=== PATIENT | female | born 1945 | race Caucasian/White ===

== ENCOUNTER 2018-12-05 13:07 | Outpatient (CLI) | payer OTHER ==
[~2018-12-05] VITALS: Ht 170.2 cm; Wt 97.5 kg
[2018-12-05] MEDS ORDERED: OMG1KC PO (13:45)
[2018-12-05] MEDS ORDERED: CALC600T12 PO (13:45)
[2018-12-05] MEDS ORDERED: AMIO200T4 PO (13:45)
[2018-12-05] MEDS ORDERED: NITR100C PO (13:45)
[2018-12-05] MEDS ORDERED: HYDR-3820 PO (13:45)
[2018-12-05] MEDS ORDERED: LISI1TAB8 PO (13:45)
[2018-12-05] MEDS ORDERED: GABA-486 PO (13:45)
[2018-12-05] MEDS ORDERED: DULO60CA58 PO (13:45)
[2018-12-05] MEDS ORDERED: ALPR0.25 PO (13:45)
== END 2018-12-05 13:53 | disposition home or self-care (01) ==
LOC: PREOP 13:07
PROVIDERS: ATTEND Podiatrist Foot & Ankle Surgery
DX: Z01.818 Encounter for other preprocedural examination (principal)

== ENCOUNTER 2018-12-10 08:03 | Day surgery (SDC) | payer MEDICARE, OTHER ==
[~2018-12-10] VITALS: Ht 170.2 cm; Wt 97.5 kg
[~2018-12-10 08:03] MED LIST: ALPR0.25 PO; AMIO200T4 PO; CALC600T12 PO; DULO60CA58 PO; GABA-486 PO; HYDR-3820 PO; LISI1TAB8 PO; NITR100C PO; OMG1KC PO
[2018-12-10] MEDS ORDERED: BUPIVACAINE 0.5% 30 ML (SENSORCAINE) VIAL ONE (08:26)
[2018-12-10 08:30] VITALS: BP 187/71
[2018-12-10] MEDS: LACTATED RINGERS 1,000 ML IV SCH ×2 (08:30→10:30)
[2018-12-10] MEDS ORDERED: CATHETER FLUSH 10 ML SYR IV PRN (08:30)
[2018-12-10] MEDS ORDERED: ceFAZolin INJECTION 1,000 MG in WATER (STERILE) FOR INJECTION 10 ML IV ONE (08:30)
[2018-12-10] MEDS ORDERED: SEVOFLURANE (ULTANE) 15 ML INHAL SOLN ONE ×5 (08:58→11:35)
[2018-12-10] MEDS ORDERED: DEXAMETHASONE 10 MG/ML (DECADRON) 1 ML VIAL ONE (08:58)
[2018-12-10] MEDS ORDERED: ONDANSETRON 4 MG/2 ML (SDV) Z0FRAN ONE (08:58)
[2018-12-10] MEDS ORDERED: proPOfol 200 MG/20 ML (DIPRIVAN) VIAL IV ONE (08:58)
[2018-12-10] MEDS ORDERED: LIDOCAINE PF 2% 5 ML (XYLOCAINE) VIAL ONE (08:58)
[2018-12-10] MEDS ORDERED: fentaNYL INJECTION 100 MCG/2 ML AMP ONE (08:59)
[2018-12-10] MEDS ORDERED: MIDAZOLAM 2 MG/2 ML (VERSED) VIAL ONE (09:00)
--- OUTSIDE RECORDS SUMMARY | 2018-12-10 09:40 | XMS REPORT | Clinical Summary ---
Author Author Admin, KELLIEE Organization [facility] Address Unknown Phone Unavailable Allergies, Adverse Reactions, Alerts Allergy Name Reaction Description Start Date Severity Status Provider No Known Allergies Carolyn Elder Conditions or Problems Problem Name Problem Code Onset Date Status Entry Date Provider Comment Standard Description Annotate U T I-Recurrent Active Manju Quintero MD Urinary tract infection, site not specified BMI 33-33.9 Active Manju Quintero MD Body Mass Index 33.0-33.9, adult Obesity Class I (BMI 30-34.9) Active Manju Quintero MD Obesity, unspecified Medication List Medication Instructions Start Date Stop Date Generic Name NDC Status Provider Patient Instruction DULOXETINE HCL 60 MG ORAL CAPSULE DELAYED RELEASE PARTICLES 1 pill daily, for depression DULOXETINE HCL 02157294536 Active Manju Quintero MD Active ADULT ASPIRIN EC LOW STRENGTH 81 MG ORAL TABLET DELAYED RELEASE ASPIRIN 43842341029 Active Manju Quintero MD Active CYCLOBENZAPRINE HCL 5 MG ORAL TABLET CYCLOBENZAPRINE HCL 49391801089 Active Manju Quintero MD Active CIPRO 250 MG ORAL TABLET 1 tablet by mouth twice daily CIPROFLOXACIN HCL 46956517688 No Longer Active Manju Quintero MD Active ALPRAZOLAM 0.25 MG ORAL TABLET ALPRAZOLAM 16103937195 Active Manju Quintero MD Active HYDROCODONE-ACETAMINOPHEN 10-325 MG ORAL TABLET HYDROCODONE- ACETAMINOPHEN 48000992874 Active Manju Quintero MD Active LISINOPRIL-HYDROCHLOROTHIAZIDE 20-12.5 MG ORAL TABLET LISINOPRIL-HYDROCHLOROTHIAZIDE 04628479084 Active Manju Quintreo MD Active CEFDINIR 300 MG ORAL CAPSULE CEFDINIR 97464076300 Active Manju Quintero MD Active CIPRO 250 MG ORAL TABLET 1 tablet by mouth twice daily CIPRO 250 MG ORAL TABLET 594585 CIPROFLOXACIN HCL Inactive Advance Directives Directive Description Start Date PERMISSION TO SHARE Immunizations Vaccine Administration Date Value Standard Description influenza immunization (Flu Vax) has been administered Done according to patient influenza virus vaccine, unspecified formulation Vital Signs Date Name Value Unit Range Description blood pressure, diastolic, repeated by physician 70 BP ramirez blood pressure, diastolic 70 mm[Hg] BP ramirez blood pressure, systolic, repeated by physician 120 BP sys blood pressure, systolic 120 mm[Hg] BP sys height E&M 67 [in_us] Bdy height pulse rate E&M 69 /min Heart rate temperature E&M 98.0 [degF] Body temperature weight E&M 210 [lb_av] Weight Measured Diagnostic Results Date Name Value Unit Range Description Office Visit: f/u uti - PMH sexually transmitted disease no risk noted Encounters Code Encounter Date Provider Facility CPT-14706 Level 3 Est. 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 Patient 08:12:19 CDT Manju Quintero MD [facility] Procedures Code Procedure Name Date Entry Date Standard Description CPT-35315 Bladder Scan 14:54:14 METAL TRADES INSTRUCTOR
--- OUTSIDE RECORDS SUMMARY | 2018-12-10 09:40 | XMS REPORT | Clinical Summary ---
Author Author Admin, KELLIEE Organization [facility] Address Unknown Phone Unavailable Allergies, Adverse Reactions, [...] 1 pill daily, for depression DULOXETINE HCL 94054026480 Active Manju Quintero MD Active ADULT ASPIRIN EC LOW STRENGTH 81 MG ORAL TABLET DELAYED RELEASE ASPIRIN 17772041233 Active Manju Quintero MD Active CYCLOBENZAPRINE HCL 5 MG ORAL TABLET CYCLOBENZAPRINE HCL 49215896512 Active Manju Quintero MD Active CIPRO 250 MG ORAL TABLET 1 tablet by mouth twice daily CIPROFLOXACIN HCL 89373332195 No Longer Active Manju Quintero MD Active ALPRAZOLAM 0.25 MG ORAL TABLET ALPRAZOLAM 25811234928 Active Manju Quintero MD Active HYDROCODONE-ACETAMINOPHEN 10-325 MG ORAL TABLET HYDROCODONE- ACETAMINOPHEN 15920243002 Active Manju Quintero MD Active LISINOPRIL-HYDROCHLOROTHIAZIDE 20-12.5 MG ORAL TABLET LISINOPRIL-HYDROCHLOROTHIAZIDE 27710833818 Active Manju Quintero MD Active CEFDINIR 300 MG ORAL CAPSULE CEFDINIR 90831005433 Active Manju Quintero MD Active CIPRO 250 MG ORAL TABLET 1 tablet by mouth twice daily CIPRO 250 MG ORAL TABLET 305752 CIPROFLOXACIN HCL Inactive Advance Directives Directive Description [...] noted Encounters Code Encounter Date Provider Facility CPT-03889 Level 3 Est. 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 Patient 08:12:19 CDT Manju Quintero MD [facility] Procedures Code Procedure Name Date Entry Date Standard Description CPT-84919 Bladder Scan 14:54:14 SENIOR QUALITY MANAGER
--- OUTSIDE RECORDS SUMMARY | 2018-12-10 09:40 | XMS REPORT ---
Author Author JANNET MARTINEZ [facility] MAIN Address [address] [place] [address] Care Team Providers Care Public Defender Name Role Phone MARTINEZ, JANNET Unavailable PROBLEMS Type Condition ICD9-CM Code [id number] Code Onset Dates Condition Status SNOMED Code Problem Anxiety 300.00 Nov, 0 25270570 Problem Precordial pain 786.51 Oct, 0 28963638 Problem Mammographic microcalcification 793.81 Sep, 0 85154975347014 Problem Anxiety F41.9 Nov, 0 46781815 Problem HTN (hypertension), benign I10 0 21461688 Problem CKD (chronic kidney disease) stage 3, GFR 30-59 ml/min N18.3 May, 0 448005957 Problem Precordial pain R07.2 Oct, 0 85938790 Problem Infiltrating ductal carcinoma of breast 174.9 Nov, 0 846612875 Problem CKD (chronic kidney disease) stage 3, GFR 30-59 ml/min 585.3 May, 0 254520937 Problem Osteoarthritis of left knee M17.12 Dec, 0 130294965 Problem Osteoarthritis of left knee 715.96 Dec, 0 027439804 Problem Fibromyalgia 729.1 Oct, 0 790507399 Problem HTN (hypertension), benign 401.1 0 13427540 Problem 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 Oct, 0 560780864 Problem Venous ulcer of right lower extremity with varicose veins 454.0 0 899640698 Problem Status post right mastectomy Z90.11 Oct, 0 010557167 Problem Status post right mastectomy V45.71 Oct, 0 623611939 Problem 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 Oct, 0 913465690 Problem Mammographic microcalcification R92.0 Sep, 0 48889501147575 Problem Osteoarthritis of right knee M17.11 Dec, 0 775112815 Problem Osteoarthritis of right knee 715.96 Dec, 0 744800765 Problem 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 08 Oct, 2011 0 770033305 Problem PAF (paroxysmal atrial fibrillation) 427.31 0 47149540 Problem Infiltrating ductal carcinoma of breast C50.919 Nov, 0 167863826 Problem Status post colonoscopy V45.89 08 Mar, 2014 0 510816273787 Problem Status post colonoscopy Z98.890 Mar, 0 111648375714 Problem Fibromyalgia M79.7 Active 387233956 Problem PAF (paroxysmal atrial fibrillation) I48.0 0 70589637 Problem Paroxysmal atrial fibrillation I48.0 Active 852327418 Problem 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 08 Oct, 2011 0 478391051 Problem Greater trochanteric bursitis of left hip 726.5 Apr, 0 77411624 Problem Greater trochanteric bursitis of left hip M70.62 Apr, 0 18607754 Problem Venous ulcer of right lower extremity with varicose veins I83.019 0 239388815 Problem History of breast cancer in female Z85.3 Active 724587582 Problem Osteoarthritis, unspecified osteoarthritis type, unspecified site M19.90 Active 838677439 ALLERGIES Substance Reaction Event Type Date Status Bactrim DS swelling Drug Allergy Nov, Active ENCOUNTERS Encounter Location Date Diagnosis [address] [address] Nov, [address] [address] Nov, Screening mammogram, encounter for Z12.31 and History of breast cancer in female Z85.[address] [address] Nov, [address] [address] Nov, [address] [address] Nov, Osteoarthritis, unspecified osteoarthritis type, unspecified site M19.90 ; Fibromyalgia M79.7 ; Paroxysmal atrial fibrillation I48.0 and History of breast cancer in female Z85.3 [facility] [address] [place] [address] [id number] [address] Oct, [facility] [id number] [address] Oct, [facility] [place] [address] [place] [address] Oct, [facility] [address] [facility] [id number] [address] Sep, [facility] [address] [address] Aug, [facility] [address] [address] Aug, [facility] [address] [address] Jul, [facility] [id number] [address] Jul, [facility] [address] [facility] [id number] [place] [address] Dec, [facility] [id number] [address] May, IMMUNIZATIONS No Known Immunizations SOCIAL HISTORY Never Assessed REASON FOR VISIT Med refills, est care[facility] Activity Details Follow Up prn Reason: VITAL SIGNS Height 64 in 2018-11-06 Weight 213 lbs 2018-11-06 Temperature 98.7 degrees Fahrenheit 2018-11-06 BMI 36.56 kg/m2 2018-11-06 Blood pressure systolic 154 mmHg 2018-11-06 Blood pressure diastolic 82 mmHg 2018-11-06 MEDICATIONS Medication Instructions Dosage Frequency Start Date End Date Duration Status Calcium Active Multivitamin Adult - Orally daily 1 tab 24h Active Alprazolam 0.25 MG Orally three times a daily as needed for anxiety 1 tablet Active Amiodarone HCl 200 MG Orally Once a day 2 tablet 24h 30 day(s) Active Hydrocodone-Acetaminophen 10-325 MG Orally every 12 hrs as needed for pain 1 tablet as needed Nov, 28 days Active Lisinopril-Hydrochlorothiazide 20-12.5 MG Orally Once a day 1 tablet 24h Oct, 90 days Active Fish Oil Active Aspirin 325 MG Orally Once a day 1 tablet 24h 30 day(s) Active Gabapentin 100 MG Orally Three times a day 1 capsule 8h 30 days Active Cranberry Active RESULTS No Results PROCEDURES Procedure Date Ordered Result Body Site [facility] VISIT NEW PATIENT November 06, 2018 INSTRUCTIONS MEDICATIONS ADMINISTERED No Known Medications MEDICAL (GENERAL) HISTORY Type Description Date Medical History HTN Medical History PAF (paroxysmal artrial fibrillation) Medical History fibromyalgia Medical History DCIS (ductal carcinoma in situ) Medical History atypical ductal hyperplasia of breast Medical History right mastectomy Medical History infiltrating ductal carcinoma of breast Medical History osteoarthritis of right & left knee Medical History anxiety Medical History venous ulcer of right lower extremity with varicose veins Medical History CKD (chronic kidney disease)stage 3, GFR ml/min Medical History precordial pain Medical History greater trochanteric bursiitis of left hip Surgical History breast removal right Surgical History hysterectomy Surgical History knee replacement, bilat Surgical History hip replacement, right Hospitalization History surgeries
--- OUTSIDE RECORDS SUMMARY | 2018-12-10 09:40 | XMS REPORT ---
Author Author JANNET MARTINEZ [facility] MAIN Address [address] [place] [address] Care Team Providers Care Retail Sales Manager Name Role Phone MARTINEZ, JANNET Unavailable PROBLEMS Type Condition ICD9-CM Code MDW28-ID Code Onset Dates Condition Status SNOMED Code Problem Anxiety 300.00 Nov, 0 02110701 Problem Precordial pain 786.51 Oct, 0 07361937 Problem Mammographic microcalcification 793.81 Sep, 0 75855601714225 Problem Anxiety F41.9 Nov, 0 35011295 Problem HTN (hypertension), benign I10 0 29397627 Problem CKD (chronic kidney disease) stage 3, GFR 30-59 ml/min N18.3 May, 0 087821561 Problem Precordial pain R07.2 Oct, 0 50285858 Problem Infiltrating ductal carcinoma of breast 174.9 Nov, 0 738898684 Problem CKD (chronic kidney disease) stage 3, GFR 30-59 ml/min 585.3 May, 0 056721824 Problem Osteoarthritis of left knee M17.12 Dec, 0 953776138 Problem Osteoarthritis of left knee 715.96 Dec, 0 351002808 Problem Fibromyalgia 729.1 Oct, 0 968361383 Problem HTN (hypertension), benign 401.1 0 62603174 Problem 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 Oct, 0 825668240 Problem Venous ulcer of right lower extremity with varicose veins 454.0 0 851751284 Problem Status post right mastectomy Z90.11 Oct, 0 751980371 Problem Status post right mastectomy V45.71 Oct, 0 866470390 Problem 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 Oct, 0 613153101 Problem Mammographic microcalcification R92.0 Sep, 0 56869899883173 Problem Osteoarthritis of right knee M17.11 Dec, 0 988888059 Problem Osteoarthritis of right knee 715.96 Dec, 0 140944118 Problem 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 08 Oct, 2011 0 257745195 Problem PAF (paroxysmal atrial fibrillation) 427.31 0 03089210 Problem Infiltrating ductal carcinoma of breast C50.919 Nov, 0 235353918 Problem Status post colonoscopy V45.89 08 Mar, 2014 0 932678375532 Problem Status post colonoscopy Z98.890 Mar, 0 199774898009 Problem Fibromyalgia M79.7 Active 437631718 Problem PAF (paroxysmal atrial fibrillation) I48.0 0 52952379 Problem Paroxysmal atrial fibrillation I48.0 Active 754099996 Problem 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 08 Oct, 2011 0 258524152 Problem Greater trochanteric bursitis of left hip 726.5 Apr, 0 55688166 Problem Greater trochanteric bursitis of left hip M70.62 Apr, 0 79269226 Problem Venous ulcer of right lower extremity with varicose veins I83.019 0 247264517 Problem History of breast cancer in female Z85.3 Active 049041024 Problem Osteoarthritis, unspecified osteoarthritis type, unspecified site M19.90 Active 678977938 ALLERGIES Substance Reaction Event Type Date Status Bactrim DS swelling Drug Allergy Nov, Active ENCOUNTERS Encounter Location Date Diagnosis [address] [address] Nov, [address] [address] Nov, Screening mammogram, encounter for Z12.31 and History of breast cancer in female Z85.[address] [address] Nov, [address] [address] Nov, [address] [address] Nov, Osteoarthritis, unspecified osteoarthritis type, unspecified site M19.90 ; Fibromyalgia M79.7 ; Paroxysmal atrial fibrillation I48.0 and History of breast cancer in female Z85.3 [facility] [address] [place] [address] [id number] [address] Oct, [facility] [address] [id number] [address] Oct, [facility] [address] [address] Oct, [facility] [address] [id number] [address] Sep, [facility] [address], [place] [address] Aug, [facility] [address], [place] [address] Aug, [facility] [address], [place] [address] Jul, [facility] [address], [place] [address] Jul, [facility] [address] [facility] [id number] [address] Dec, [facility] [id number], [place] [address] May, IMMUNIZATIONS No Known Immunizations SOCIAL HISTORY Never Assessed REASON FOR VISIT medical history update PLAN OF CARE VITAL SIGNS MEDICATIONS Medication Instructions Dosage Frequency Start Date End Date Duration Status Gabapentin 100 MG Orally Three times a day 1 capsule 8h 30 days Unknown Multivitamin Adult - Orally daily 1 tab 24h Unknown Aspirin 325 MG Orally Once a day 1 tablet 24h 30 day(s) Unknown Alprazolam 0.25 MG Orally three times a daily as needed for anxiety 1 tablet Unknown Fish Oil Unknown Amiodarone HCl 200 MG Orally Once a day 2 tablet 24h 30 day(s) Unknown Lisinopril-Hydrochlorothiazide 20-12.5 MG Orally Once a day 1 tablet 24h 07 Oct, 2018 90 days Unknown Hydrocodone-Acetaminophen 10-325 MG Orally every 12 hrs as needed for pain 1 tablet as needed Nov, 28 days Unknown Cranberry Unknown Calcium Unknown RESULTS No Results PROCEDURES No Known procedures INSTRUCTIONS MEDICATIONS ADMINISTERED No Known Medications MEDICAL [...]
--- OUTSIDE RECORDS SUMMARY | 2018-12-10 09:41 | XMS REPORT | Clinical Summary ---
Author Author Admin, QIE Organization [facility] Address Unknown Phone Unavailable Allergies, Adverse Reactions, Alerts Allergy Name Reaction Description Start Date Severity Status Provider Allergies Unknown Conditions or Problems Problem Name Problem Code Onset Date Status Entry Date Provider Comment Standard Description Annotate U T I-Recurrent Active Manju Quintero MD Urinary tract infection, site not specified Medication List Medication Instructions Start Date Stop Date Generic Name NDC Status Provider Patient Instruction ADULT ASPIRIN EC LOW STRENGTH 81 MG ORAL TABLET DELAYED RELEASE ASPIRIN 06783784660 Active Manju Quintero MD Active CYCLOBENZAPRINE HCL 5 MG ORAL TABLET CYCLOBENZAPRINE HCL 76422552087 Active Manju Quintero MD Active CIPRO 250 MG TAB 1 tablet by mouth twice daily CIPROFLOXACIN HCL 26604049134 No Longer Active Manju Quintero MD Active ALPRAZOLAM 0.25 MG ORAL TABLET ALPRAZOLAM 73880646052 Active Manju Quintero MD Active HYDROCODONE-ACETAMINOPHEN 10-325 MG ORAL TABLET HYDROCODONE- ACETAMINOPHEN 06533956833 Active Manju Quintero MD Active LISINOPRIL-HYDROCHLOROTHIAZIDE 20-12.5 MG ORAL TABLET LISINOPRIL-HYDROCHLOROTHIAZIDE 81010702533 Active Manju Quintero MD Active CEFDINIR 300 MG ORAL CAPSULE CEFDINIR 66798666055 Active Manju Quintero MD Active CIPRO 250 MG TAB 1 tablet by mouth twice daily CIPRO 250 MG TAB 606165 CIPROFLOXACIN HCL Inactive Advance Directives Directive Description Start Date PERMISSION TO SHARE Vital Signs Date Name Value Unit Range Description blood pressure, diastolic 76 mm[Hg] BP ramirez blood pressure, systolic 124 mm[Hg] BP sys height E&M 67 [in_us] Bdy height pulse rate E&M 68 /min Heart rate temperature E&M 98.3 [degF] Body temperature weight E&M 210 [lb_av] Weight Measured Diagnostic Results Date Name Value Unit Range Description Office Visit: Chronic kidney disease, recurrent UTI's - Chemistry RBC, urine, dipstick negative protein, total urine random negative mg/dL Office Visit: Chronic kidney disease, recurrent UTI's - Urinalysis pH, urine, semiquantitative 6 specific gravity, urine 1.010 ketones, urine, by test strip negative bilirubin, urine negative glucose, urine, semiquantitative negative urine color yellow appearance, urine clear leukocyte esterase, urine, by dipstick 2+ nitrite, urine, semiquantitative negative urobilinogen, urine, semiquantitative (dipstick) negative protein, urine, semiquantitative (dipstick) negative Encounters Code Encounter Date Provider Facility CPT-32768 Level 3 Est. Patient 08:12:19 CRISTÓBAL Quintero MD [facility]
--- OUTSIDE RECORDS SUMMARY | 2018-12-10 09:41 | XMS REPORT | Clinical Summary ---
Author Author Admin, QIE Organization [facility] Address Unknown Phone Unavailable Allergies, [...] 81 MG ORAL TABLET DELAYED RELEASE ASPIRIN 78427117246 Active Manju Quintero MD Active CYCLOBENZAPRINE HCL 5 MG ORAL TABLET CYCLOBENZAPRINE HCL 25559088223 Active Majnu Quintero MD Active CIPRO 250 MG TAB 1 tablet by mouth twice daily CIPROFLOXACIN HCL 53794606941 No Longer Active Manju Quintero MD Active ALPRAZOLAM 0.25 MG ORAL TABLET ALPRAZOLAM 04092797391 Active Manju Quintero MD Active HYDROCODONE-ACETAMINOPHEN 10-325 MG ORAL TABLET HYDROCODONE- ACETAMINOPHEN 95157331025 Active Manju Quintero MD Active LISINOPRIL-HYDROCHLOROTHIAZIDE 20-12.5 MG ORAL TABLET LISINOPRIL-HYDROCHLOROTHIAZIDE 83492416697 Active Manju Quintero MD Active CEFDINIR 300 MG ORAL CAPSULE CEFDINIR 64513271521 Active Manju Quintero MD Active CIPRO 250 MG TAB 1 tablet by mouth twice daily CIPRO 250 MG TAB 222379 CIPROFLOXACIN HCL Inactive Advance Directives Directive Description [...] negative Encounters Code Encounter Date Provider Facility CPT-02258 Level 3 Est. Patient 08:12:19 CRISTÓBAL Quintero MD [facility]
--- OUTSIDE RECORDS SUMMARY | 2018-12-10 09:41 | XMS REPORT | Clinical Summary ---
Author Author Admin, KELLIEE Organization [facility] Address Unknown Phone Unavailable Allergies, Adverse Reactions, [...] 1 pill daily, for depression DULOXETINE HCL 93774147505 Active Manju Quintero MD Active ADULT ASPIRIN EC LOW STRENGTH 81 MG ORAL TABLET DELAYED RELEASE ASPIRIN 94032457144 Active Manju Quintero MD Active CYCLOBENZAPRINE HCL 5 MG ORAL TABLET CYCLOBENZAPRINE HCL 96639359279 Active Manju Quintero MD Active CIPRO 250 MG ORAL TABLET 1 tablet by mouth twice daily CIPROFLOXACIN HCL 36713158496 No Longer Active Manju Quintero MD Active ALPRAZOLAM 0.25 MG ORAL TABLET ALPRAZOLAM 06711463495 Active Manju Quintero MD Active HYDROCODONE-ACETAMINOPHEN 10-325 MG ORAL TABLET HYDROCODONE- ACETAMINOPHEN 57722843589 Active Manju Quintero MD Active LISINOPRIL-HYDROCHLOROTHIAZIDE 20-12.5 MG ORAL TABLET LISINOPRIL-HYDROCHLOROTHIAZIDE 42708488141 Active Manju Quintero MD Active CEFDINIR 300 MG ORAL CAPSULE CEFDINIR 52223298899 Active Manju Quintero MD Active CIPRO 250 MG ORAL TABLET 1 tablet by mouth twice daily CIPRO 250 MG ORAL TABLET 417954 CIPROFLOXACIN HCL Inactive Advance Directives Directive Description [...] noted Encounters Code Encounter Date Provider Facility CPT-91839 Level 3 Est. 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 Patient 08:12:19 CDT Manju Quintero MD [facility] Procedures Code Procedure Name Date Entry Date Standard Description CPT-35131 Bladder Scan 14:54:14 PHOTO CARTOGRAPHER
--- OUTSIDE RECORDS SUMMARY | 2018-12-10 09:41 | XMS REPORT | Clinical Summary ---
[...] 81 MG ORAL TABLET DELAYED RELEASE ASPIRIN 32483086954 Active Manju Quintero MD Active CYCLOBENZAPRINE HCL 5 MG ORAL TABLET CYCLOBENZAPRINE HCL 61867266421 Active Manju Quintero MD Active CIPRO 250 MG TAB 1 tablet by mouth twice daily CIPROFLOXACIN HCL 35908092145 No Longer Active Manju Quintero MD Active ALPRAZOLAM 0.25 MG ORAL TABLET ALPRAZOLAM 71203000379 Active Manju Quintero MD Active HYDROCODONE-ACETAMINOPHEN 10-325 MG ORAL TABLET HYDROCODONE- ACETAMINOPHEN 90679180204 Active Manju Quintero MD Active LISINOPRIL-HYDROCHLOROTHIAZIDE 20-12.5 MG ORAL TABLET LISINOPRIL-HYDROCHLOROTHIAZIDE 38113110644 Active Manju Quintero MD Active CEFDINIR 300 MG ORAL CAPSULE CEFDINIR 85477856028 Active Manju Quintero MD Active CIPRO 250 MG TAB 1 tablet by mouth twice daily CIPRO 250 MG TAB 093150 CIPROFLOXACIN HCL Inactive Advance Directives Directive Description [...] negative Encounters Code Encounter Date Provider Facility CPT-54430 Level 3 Est. Patient 08:12:19 CRISTÓBAL Quintero MD [facility]
--- OUTSIDE RECORDS SUMMARY | 2018-12-10 09:41 | XMS REPORT | Clinical Summary ---
Author Author Admin, KELLIEE Organization [facility] Address Unknown Phone Unavailable Allergies, Adverse [...] 1 pill daily, for depression DULOXETINE HCL 29787133396 Active Manju Quintero MD Active ADULT ASPIRIN EC LOW STRENGTH 81 MG ORAL TABLET DELAYED RELEASE ASPIRIN 72700822142 Active Manju Quintero MD Active CYCLOBENZAPRINE HCL 5 MG ORAL TABLET CYCLOBENZAPRINE HCL 24254589891 Active Manju Quintero MD Active CIPRO 250 MG ORAL TABLET 1 tablet by mouth twice daily CIPROFLOXACIN HCL 24528320491 No Longer Active Manju Quintero MD Active ALPRAZOLAM 0.25 MG ORAL TABLET ALPRAZOLAM 94445085837 Active Manju Quintero MD Active HYDROCODONE-ACETAMINOPHEN 10-325 MG ORAL TABLET HYDROCODONE- ACETAMINOPHEN 12184569010 Active Manju Quintero MD Active LISINOPRIL-HYDROCHLOROTHIAZIDE 20-12.5 MG ORAL TABLET LISINOPRIL-HYDROCHLOROTHIAZIDE 58646831099 Active Manju Quintero MD Active CEFDINIR 300 MG ORAL CAPSULE CEFDINIR 75261618478 Active Manju Quintero MD Active CIPRO 250 MG ORAL TABLET 1 tablet by mouth twice daily CIPRO 250 MG ORAL TABLET 312973 CIPROFLOXACIN HCL Inactive Advance Directives Directive Description [...] noted Encounters Code Encounter Date Provider Facility CPT-78362 Level 3 Est. Patient 14:54:14 CHIPS SCREEN TENDER Manju Quintero MD [facility] CPT-29955 Level 3 Est. Patient 08:12:19 CDT Manju Quintero MD [facility] Procedures Code Procedure Name Date Entry Date Standard Description [id number] Bladder Scan 14:54:14 CHIPS SCREEN TENDER
--- OUTSIDE RECORDS SUMMARY | 2018-12-10 09:41 | XMS REPORT | Continuity of Care Document ---
Author Organization Unknown Address Unknown Allergies There is no data. Medications There is no data. Problems Date Dx Coded Attending Type Code Diagnosis Diagnosed By 06/21/2017 Manju Quintero MD N39.0 U T I-Recurrent 08/17/2018 Manju Quintero MD E66.9 Obesity Class I (BMI 30-34.9) 08/17/2018 Manju Quintero MD Z68.33 BMI 33-33.9 Procedures There is no data. Results There is no data. Encounters ACCT No. Visit Date/Time Discharge Status Pt. Type Provider Facility Loc./Unit Complaint [id number] 12/05/2018 10:00:00 12/05/2018 23:59:59 [facility] SHANNON [facility] [id number] 11/05/2018 13:34:03 [facility] Unknown Manju Quintero MD
--- OUTSIDE RECORDS SUMMARY | 2018-12-10 09:41 | XMS REPORT | Clinical Summary ---
Author Author Admin, QIE Organization [facility] Address Unknown Phone Unavailable Allergies, Adverse Reactions, [...] 81 MG ORAL TABLET DELAYED RELEASE ASPIRIN 12889267082 Active Manju Quintero MD Active CYCLOBENZAPRINE HCL 5 MG ORAL TABLET CYCLOBENZAPRINE HCL 34916184302 Active Manju Quintero MD Active CIPRO 250 MG TAB 1 tablet by mouth twice daily CIPROFLOXACIN HCL 54368612139 No Longer Active Manju Quintero MD Active ALPRAZOLAM 0.25 MG ORAL TABLET ALPRAZOLAM 47736816772 Active Manju Quintero MD Active HYDROCODONE-ACETAMINOPHEN 10-325 MG ORAL TABLET HYDROCODONE- ACETAMINOPHEN 71722295505 Active Manju Quintero MD Active LISINOPRIL-HYDROCHLOROTHIAZIDE 20-12.5 MG ORAL TABLET LISINOPRIL-HYDROCHLOROTHIAZIDE 24739361968 Active Manju Quintero MD Active CEFDINIR 300 MG ORAL CAPSULE CEFDINIR 10624961939 Active Manju Quintero MD Active CIPRO 250 MG TAB 1 tablet by mouth twice daily CIPRO 250 MG TAB 610147 CIPROFLOXACIN HCL Inactive Vital Signs Date Name Value Unit Range [...] negative Encounters Code Encounter Date Provider Facility CPT-77936 Level 3 Est. Patient 08:12:19 CDT Manju Quintero MD [facility]
--- NOTE | 2018-12-10 12:00 | Progress Note-Pre Operative ---
Pre-Operative Progress Note H&P Reviewed The H&P was reviewed, patient examined and no changes noted. Date Seen by Provider: Dec 10, 2018 Time Seen by Provider: 10:00 Date H&P Reviewed: Dec 10, 2018 Time H&P Reviewed: 10:01 Pre-Operative Diagnosis: contracted toes 1, 2, 3, 4, 5 right JOAN CANALES DPM Dec 10, 2018 12:00
[2018-12-10] MEDS ORDERED: LACTATED RINGERS 1,000 ML IV SCH (12:02)
--- NOTE | 2018-12-10 12:02 | Progress Note-Post Operative ---
Post-Operative Progess Note Surgeon (s)/Celebrity Manager (s) Surgeon JOAN CANALES DPM Celebrity Manager: none Pre-Operative Diagnosis contracted toes 1, 2, 3, 4, 5 right Post-Operative Diagnosis Same Procedure & Operative Findings Date of Procedure 12/10/18 Procedure Performed/Findings Reduction of Hammertoes 1, 2, 3, 4, 5, right foot Anesthesia Type General Estimated Blood Loss Estimated blood loss (mL): Minimal Specimens/Packing Specimens Removed none JOAN CANALES DPM Dec 10, 2018 12:02
[2018-12-10] MEDS ORDERED: HYDROcodone/APAP 5 MG/325 MG (LORTAB) TAB PO PRN (12:15)
--- NOTE | 2018-12-10 12:21 | Anesthesia-General Post-Op ---
General Patient Condition Mental Status/LOC: Same as Preop Cardiovascular: Satisfactory Nausea/Vomiting: Absent Respiratory: Satisfactory Pain: Controlled Complications: Absent Post Op Complications Complications None Follow Up Care/Instructions Patient Instructions None needed. Anesthesia/Patient Condition Patient Condition Patient is doing well, no complaints, stable vital signs, no apparent adverse anesthesia problems. No complications reported per nursing. [place] [facility] [place]: Yes MARCOS MOSLEY CRNA Dec 10, 2018 12:21
--- NOTE | 2018-12-10 12:53 | Diagnostic Imaging Report ---
Indication: Postop. No priors. Osteotomies and percutaneous pins placed along the interphalangeal joints of the first through fourth toes. Osteotomy and resection of the distal aspect of the proximal phalanx of the fifth toe is present without underlying metallic hardware. The alignment appeared good. Plantar calcaneal spurring chronic. Impression: Postsurgical changes to the phalanges, percutaneous pins placed first through fourth rays. Alignment appeared good. Dictated by: Dictated on workstation # [id number]
[2018-12-10 13:00] VITALS: BP 160/87
[2018-12-10 13:30] VITALS: BP 157/75
[2018-12-10] MEDS ORDERED: CEPH-507 PO (13:56)
[2018-12-10] MEDS ORDERED: OXYC-199 PO (13:56)
[2018-12-10 14:00] VITALS: BP 154/72
--- NOTE | 2018-12-10 15:00 | Physical Therapy Ortho Eval ---
PT Orthopedic Evaluation Type of Surgery right contracted toes 1-5 Prior Level of Function Current Living Status: Spouse Locomotion (Upon Admit): Independent, Front Wheeled Walker Subjective Subjective Patient agrees to PT. Entry Into Home: Stairs With Railing Steps Into Home: 3 Steps Accessories: Railing Present Motor Control Motor Control: Motor Control WNL ROM ROM: WFL, except focal deficit Strength Strength: WFL Transfer Transfers (B, C, W/C) (FIM): 7 Gait Gait Assistive Device: FWW Right Lower Extremity: Right Weight Bearing Status RLE: Partial Weight Bearing Left Lower Extremity: Left Weight Bearing Status LLE: Full Weight Bearing Gait (FIM): 2 Distance (FIM): 5=212-81 ft Distance: 100' x 2 Gait Level of Assist: 5 Summary/Comments Patient had difficulty complying with PWB right foot with verbal, tactile and demonstration. Spouse present and comprehends and reports he will continue to work with patient at home. Treatment Rendered Treatment: Gait Train, Step Train (declined actual training/accepted verbal demonstration/instruction with good understanding) Assessment/Goals Goal Time Frame: 1 Visit Safe Ambulation: Yes Plan Treatment Plan: Discharge Treatment Duration: eval PT/Family Agrees to Plan: Yes Time Time In: 1410 Time Out: 1433 Total Billed Treatment Time: 23 Billed Treatment Time 1 visit EVJelani 8 min GT 15 min SUSY CROCKER PT Dec 10, 2018 15:00
--- NOTE | 2018-12-10 21:39 | OPERATIVE REPORT ---
DATE OF SERVICE: 12/10/2018 SURGEON: Carleen Francois DPM PREOPERATIVE DIAGNOSIS: 1. Hammer digit syndrome, second, third, fourth and fifth digits, right foot. 2. Hallux malleus, right hallux. POSTOPERATIVE DIAGNOSES: 1. Hammer digit syndrome, second, third, fourth and fifth digits, right foot. 2. Hallux malleus, right hallux. PROCEDURE: Reduction of hammertoe 1, 2, 3, 4 and 5, all right foot with arthrodesis to the first, second, third and fourth digits, arthroplasty to the fifth. WOUND CLASS: Clean. ANESTHESIA: General. HEMOSTASIS: Pneumatic thigh tourniquet at 300 mmHg. INDICATIONS: This 73-year-old female presents complaining of painful hammertoes, right foot. Conservative therapy has met with unsatisfactory results and the patient is agreeable to surgical intervention after risks and complications were discussed at length. No guarantees were extended to the patient and she is willing to proceed. DESCRIPTION OF PROCEDURE: The patient was brought back to the operative table, placed in secure supine position. General anesthetic was then induced. Appropriate timeout was performed. A thigh tourniquet was placed on the right lower extremity over several layers of padding. The right foot was anesthetized utilizing aseptic technique with 10 mL of 0.5% Marcaine plain. The right foot was then prepped and draped in normal sterile manner. The right foot was then elevated and allowed to exsanguinate, after which the tourniquet was inflated to 300 mmHg. Attention was then directed to the dorsal aspect of the right hallux where a 2 cm medial to lateral incision was created overlying the interphalangeal joint of the hallux. The incision was deepened in the same plane with great care to identify and retract all vital neurovascular structures. A transverse tenotomy was performed. This exposed the base of the distal phalanx and the head of the proximal phalanx, which were reduced with a power sagittal saw. Next, a 0.062 smooth K-wire was utilized to fenestrate the base of the distal phalanx and head of the proximal phalanx. Excellent bony apposition was appreciated at this time and good reduction of the contracture at the interphalangeal joint was noted. Smooth 0.062 K wire was driven from distal medial to proximal lateral and a second K-wire from distal lateral to proximal medial. The K wires were bent as the exited out the end of the toe and were protected utilizing a Coban as they were bent and angled towards each other. The wound was flushed with copious amounts of normal saline and the extensor tendon repaired with 3-0 Vicryl, superficial closure with 4-0 Vicryl and skin closed with 4-0 Prolene in an alternating simple interrupted and horizontal mattress type stitch. There remained some dorsal extension with a tight extensor hallucis longus. Utilizing an 11 blade, a stab incision was created just proximal to the metatarsophalangeal joint and the medial aspect of the extensor hallucis longus was severed. Next, approximately a centimeter distal to that, another stab incision was created and the lateral portion of the extensor hallucis longus tendon was severed. The digit was then forcibly plantarflexed extending the digit down in a more plantarflexed position. Good reduction of the extensor hallucis longus elevating the hallux was noted at this time. Attention was then directed to the second, third and fourth digits of the right foot where the same procedure was performed, noting a rigid contracture at the proximal interphalangeal joint. An incision was created at the metatarsophalangeal joint down to the distal interphalangeal joint of each of the digits. The incisions were deepened in the same plane with great care to identify and retract all vital neurovascular structures. The incision was deepened down to the extensor tendon where a Z slide lengthening was performed to the second, third and fourth rays. The extensor tendon was then reflected proximally and the extensor max released overlying the metatarsophalangeal joints. The medial and lateral collateral ligaments at the metatarsophalangeal joint was released. This allowed the proximal phalanx to come down to more rectus alignment. Next, the head of the proximal phalanx was fashioned into a peg utilizing a power sagittal saw and power suzette. A hole was created at the base of the middle phalanx with the power suzette to the second, third and fourth rays. Next, utilizing a 0.062 smooth K wire, the digits were then held in rectus alignment with the excess K wire being cut and protective ball plane being placed over the end of the wires of the second, third and fourth digits. The wounds were flushed with copious amounts of normal saline. Closure was then performed in layers. Deep closure was performed with 3-0 Vicryl, superficial with 4-0 Vicryl, skin closed with 4-0 Prolene in a horizontal mattress type stitch. Attention was then directed to the right fifth digit where the digit was extended dorsally as well as adductovarus contracture. A 2 cm longitudinal linear incision was created from the metatarsophalangeal joint to the distal interphalangeal joint area. The extensor tendon was lengthened with the Z slide procedure. The hypertrophic head of the proximal phalanx was then resected utilizing power sagittal saw. The wound was flushed with copious amounts of normal saline. Closure was then performed in layers. Deep closure was performed with 4-0 Vicryl. Superficial closure with 4-0 Vicryl and the skin was closed with horizontal mattress type suture with 4-0 Prolene. The tourniquet was released noting appropriate capillary refill time to all digits of the right foot. Postoperative injection consisted of 10 mL of 0.5% Marcaine injected in a local effusion to the surgical sites. A postoperative dressing consisted of Betadine soaked Adaptic, sterile 4 x 4, sterile Kerlix all secured with a Coban wrap. The patient tolerated the anesthesia and procedure well, was transported from the operating room to the recovery area with vital signs stable and vascular status intact to all digits of the right foot. She is to follow up in my office in 10 days' period of time or sooner if necessary. Job ID: [id number] DocumentID: [id number] Dictated Date: 12/10/2018 12:15:05 Rescue Boat Operator Date: 12/10/2018 21:38:40 Dictated By: TIMOTHY CERDA
== END 2018-12-10 14:30 | disposition home or self-care (01) ==
LOC: SDC 08:03
PROVIDERS: ATTEND Podiatrist Foot & Ankle Surgery
DX: M20.41 Other hammer toe(s) (acquired), right foot (principal); M20.31 Hallux varus (acquired), right foot; Z11.2 Encounter for screening for other bacterial diseases; I48.0 Paroxysmal atrial fibrillation; I12.9 Hypertensive chronic kidney disease with stage 1 through stage 4 chronic kidney disease, or unspecified chronic kidney disease; M79.7 Fibromyalgia; M17.0 Bilateral primary osteoarthritis of knee; F41.9 Anxiety disorder, unspecified; N18.3 Chronic kidney disease, stage 3 (moderate); M70.62 Trochanteric bursitis, left hip; I27.20 Pulmonary hypertension, unspecified; G25.81 Restless legs syndrome; E66.9 Obesity, unspecified; F32.9 Major depressive disorder, single episode, unspecified; Z85.3 Personal history of malignant neoplasm of breast; Z96.653 Presence of artificial knee joint, bilateral; Z96.641 Presence of right artificial hip joint; Z90.11 Acquired absence of right breast and nipple; Z86.718 Personal history of other venous thrombosis and embolism; Z79.899 Other long term (current) drug therapy; Z88.2 Allergy status to sulfonamides; Z68.33 Body mass index [BMI] 33.0-33.9, adult
CPT/HCPCS: 73620; 87081

== ENCOUNTER 2019-09-09 13:34 | Outpatient (CLI) | payer MEDICARE, OTHER ==
[~2019-09-09] VITALS: Ht 170.2 cm; Wt 99.2 kg
[~2019-09-09 13:34] MED LIST changes: +CEPH-507 PO; -DULO60CA58 PO; +DULO60CA59 PO; +OXYC-199 PO
[2019-09-09 13:49] VITALS: BP 161/78
== END 2019-09-09 14:00 | disposition home or self-care (01) ==
LOC: PREOP 13:34
PROVIDERS: ATTEND Podiatrist Foot & Ankle Surgery
DX: Z01.818 Encounter for other preprocedural examination (principal)
CPT/HCPCS: 87081

== ENCOUNTER 2019-09-16 06:05 | Day surgery (SDC) | payer MEDICARE, OTHER ==
[2019-09-16] VITALS (9 sets, daily range): BP systolic 138–190; BP diastolic 59–99
[~2019-09-16] VITALS: Ht 170.2 cm; Wt 99.2 kg
[~2019-09-16 06:05] MED LIST changes: +LISI1TAB25 PO; -LISI1TAB8 PO
[2019-09-16] MEDS ORDERED: LIDOCAINE PF 2% 5 ML (XYLOCAINE) VIAL ONE (06:52)
[2019-09-16] MEDS ORDERED: proPOfol 200 MG/20 ML (DIPRIVAN) VIAL IV ONE ×2 (06:52→08:26)
[2019-09-16] MEDS ORDERED: fentaNYL INJECTION 100 MCG/2 ML AMP ONE (06:52)
[2019-09-16] MEDS ORDERED: MIDAZOLAM 2 MG/2 ML (VERSED) VIAL ONE (06:53)
[2019-09-16] MEDS ORDERED: ceFAZolin INJECTION 1,000 MG ONE (06:58)
[2019-09-16] MEDS ORDERED: WATER (STERILE) FOR INJECTION 10 ML ONE (06:59)
[2019-09-16] MEDS ORDERED: ceFAZolin INJECTION 1,000 MG in WATER (STERILE) FOR INJECTION 10 ML IV ONE (07:00)
[2019-09-16] MEDS ORDERED: LIDOCAINE 1% INJ 20 ML 20 ML VIAL ONE (07:09)
[2019-09-16] MEDS ORDERED: DEXAMETHASONE 10 MG/ML (DECADRON) 1 ML VIAL ONE ×2 (07:09→08:03)
[2019-09-16] MEDS ORDERED: BUPIVACAINE 0.5% 30 ML (SENSORCAINE) VIAL ONE (07:09)
[2019-09-16] MEDS: LACTATED RINGERS 1,000 ML IV PRN ×2 (07:20→09:15)
[2019-09-16] MEDS ORDERED: CATHETER FLUSH 10 ML SYR IV PRN (07:30)
--- NOTE | 2019-09-16 07:31 | Progress Note-Pre Operative ---
Pre-Operative Progress Note H&P Reviewed The H&P was reviewed, patient examined and no changes noted. Date Seen by Provider: Sep 16, 2019 Time Seen by Provider: 07:30 Date H&P Reviewed: Sep 16, 2019 Time H&P Reviewed: 07:30 Pre-Operative Diagnosis: Hammertoes 2, 3, 4, 5, left foot JOAN CANALES DPM Sep 16, 2019 07:31
[2019-09-16] MEDS ORDERED: ONDANSETRON 4 MG/2 ML (SDV) Z0FRAN ONE (08:03)
[2019-09-16] MEDS ORDERED: SEVOFLURANE (ULTANE) 15 ML INHAL SOLN ONE ×3 (08:03→09:17)
--- NOTE | 2019-09-16 09:33 | Progress Note-Post Operative ---
Post-Operative Progess Note Surgeon (s)/Residential Lawn Specialist (s) Surgeon JOAN CANALES DPM Residential Lawn Specialist: none Pre-Operative Diagnosis Hammertoes 2, 3, 4, 5, left foot Post-Operative Diagnosis Same plus exostosis left hallux Procedure & Operative Findings Date of Procedure 09/16/19 Procedure Performed/Findings Reduction of hammertoes 2, 3, 4, 5, left Exostectomy left hallux Anesthesia Type General Estimated Blood Loss Estimated blood loss (mL): minimal Specimens/Packing Specimens Removed none JOAN CANALES DPM Sep 16, 2019 09:33
[2019-09-16] MEDS ORDERED: CEPH500C PO (09:36)
[2019-09-16] MEDS ORDERED: ACHD5005 PO (09:36)
[2019-09-16] MEDS ORDERED: ONDANSETRON 4 MG/2 ML (SDV) Z0FRAN IVP PRN (09:45)
[2019-09-16] MEDS ORDERED: HYDROmorphone 2 MG/ML VIAL (DILAUDID) IV ONE (09:45)
[2019-09-16] MEDS ORDERED: HYDROcodone/APAP 5 MG/325 MG (LORTAB) TAB ONE (10:36)
[2019-09-16] MEDS ORDERED: HYDROcodone/APAP 5 MG/325 MG (LORTAB) TAB PO ONE (10:45)
--- NOTE | 2019-09-16 10:45 | Diagnostic Imaging Report ---
INDICATION: Left foot surgery. TIME OF EXAM: 10:33 a.m. FINDINGS: Two views of the left foot demonstrate K-wires extending through the second through fourth toes. Midfoot and hindfoot are unremarkable apart from a large plantar calcaneal spur. No fractures are seen. IMPRESSION: Postop changes to the second through fourth toes. Dictated by: Dictated on workstation # [id number]
--- NOTE | 2019-09-16 18:34 | OPERATIVE REPORT ---
DATE OF SERVICE: 09/16/2019 SURGEON: Carleen Canales DPM PREOPERATIVE DIAGNOSES: 1. Hammer digit syndrome, second, third, fourth and fifth digits, left foot. 2. Exostosis, left hallux. POSTOPERATIVE DIAGNOSES: 1. Hammer digit syndrome, second, third, fourth and fifth digits, left foot. 2. Exostosis, left hallux. PROCEDURES: 1. Reduction of hammertoe, left second, third, fourth and fifth digits. 2. Exostectomy, left hallux. WOUND CLASS: Clean. ANESTHESIA: General. HEMOSTASIS: Pneumatic ankle tourniquet at 250 mmHg. INDICATIONS: This 74-year-old female presents complaining of a painful left foot. Conservative therapy is met with unsatisfactory results and the patient is agreeable to surgical intervention after risks and complications were discussed at length. No guarantees were extended to the patient and she is willing to proceed. DESCRIPTION OF PROCEDURE: The patient was brought back to the operating table, placed in secure supine position. Appropriate timeout was performed. A pneumatic ankle tourniquet was placed on left lower extremity over several layers of padding. Anesthesia was achieved utilizing 10 mL of 1:1 mixture of 0.5% Marcaine and 2% lidocaine injected in a local infusion to the second, third, fourth and fifth rays. The left foot was then prepped and draped in normal sterile manner. The patient continued to move even under heavy anesthesia for an attempted monitored anesthesia care, it was then decided that a general anesthetic would be safer for the patient and reduce motion, which indeed do. Again, the left foot was prepped and draped in normal sterile manner. The left foot was then elevated, allowed to exsanguinate after which the tourniquet was inflated to 250 mmHg. Attention was then directed to the dorsal aspect of the contracted toes two, three and four of the left foot where the same procedure was performed to each digit. An incision was made from the metatarsophalangeal joint to the distal interphalangeal joint of the toes. The incision was deepened in the same plane with great care to identify and retract all vital neurovascular structures. All the necessary cautery was performed. The incision was deepened down to the extensor tendons where a Z slide lengthening was performed overlying the proximal phalanx. The extensor tendon was reflected proximally exposing the metatarsophalangeal joint where a dorsal capsulorrhaphy was performed to the second, third and fourth rays. The extensor max was also released in this area. Next, attention was then directed to the proximal interphalangeal joint where a capsular release was performed, the medial and lateral collateral ligaments were released. The heads of the second, third and fourth proximal phalanx were then fashioned into a peg with a power sagittal saw and power bur and a hole was created to the base of the middle phalanx with a power bur for the peg-in-hole type arthrodesis. The wounds were flushed with copious amounts of normal saline. A 0.054 K-wire was used to fixate the arthrodesis in its corrected position. The K-wire sticking out of the digits were cut and a protective ball placed over the end of the wires. The wounds were flushed, after which closure was performed in layers. Deep closure was performed with 3-0 Vicryl, superficial with 4-0 Vicryl, skin closed with 4-0 Prolene in a horizontal mattress type stitch. Attention was then directed to the left fifth toe, where a 2.5 cm longitudinal linear incision was created. The incision was deepened down to the extensor tendon where a Z slide lengthening was performed overlying the proximal phalanx. The extensor tendon was reflected proximally and extensor max released. A dorsal capsulorrhaphy was performed to the fifth metatarsophalangeal joint. This allowed the proximal phalanx to come down in more rectus alignment. An arthroplasty was performed to the proximal interphalangeal joint with resection of the hypertrophic head of the proximal phalanx. The wound was flushed with copious amounts of normal saline and closure was performed in layers. Deep closure was performed with 3-0 Vicryl, superficial with 4-0 Vicryl, skin closed with 4-0 Prolene in a horizontal mattress type stitch. Attention was then directed to the lateral aspect of the left hallux, where a bony prominence was identified with an overlying hyperkeratotic lesion. A 1 cm longitudinal linear incision was created just superior to the bony prominence. The incision was deepened down to bone, where the lateral exostosis was palpated and visualized. A side cutting bur was then utilized to reduce this bony prominence. The area was then thoroughly flushed with normal saline, after which closure was performed in layers. Deep closure was performed with 4-0 Vicryl, skin closure was performed with 4-0 Prolene in a simple interrupted type stitch. Postoperative injection consisted of 10 mL of 0.5% Marcaine injected in local infusion to the surgical sites. Postoperative dressing consisted of Betadine soaked Adaptic, sterile 4 x 4, sterile Kerlix all secured with a Coban wrap. The patient tolerated the anesthesia and procedure well, was transported from the operating room to the recovery area with vital signs stable and vascular status intact to all digits of the left foot. She was given a prescription for Keflex and Vicodin. She is to follow up in my office in 10 days' period of time or sooner if necessary. Job ID: [id number] DocumentID: [id number] Dictated Date: 09/16/2019 10:05:49 Exercise Scientist Date: 09/16/2019 18:33:49 Dictated By: CARLEEN CANALES DPM
--- NOTE | 2019-09-18 17:56 | Anesthesia-General Post-Op ---
General Patient Condition Mental Status/LOC: Same as Preop Cardiovascular: Satisfactory Nausea/Vomiting: Absent Respiratory: Satisfactory Pain: Controlled Complications: Absent Post Op Complications Complications None Follow Up Care/Instructions Patient Instructions None needed. Anesthesia/Patient Condition Patient Condition Patient is doing well, no complaints, stable vital signs, no apparent adverse anesthesia problems. No complications reported per nursing. D/C home per [facility] [place] Criteria: Yes MARCOS MOSLEY CRNA Sep 18, 2019 17:55
== END 2019-09-16 11:40 | disposition home or self-care (01) ==
LOC: SDC 06:05
PROVIDERS: ATTEND Podiatrist Foot & Ankle Surgery
DX: M20.42 Other hammer toe(s) (acquired), left foot (principal); M89.8X7 Other specified disorders of bone, ankle and foot; I48.0 Paroxysmal atrial fibrillation; I12.9 Hypertensive chronic kidney disease with stage 1 through stage 4 chronic kidney disease, or unspecified chronic kidney disease; N18.3 Chronic kidney disease, stage 3 (moderate); M17.0 Bilateral primary osteoarthritis of knee; J30.9 Allergic rhinitis, unspecified; M79.7 Fibromyalgia; Z90.710 Acquired absence of both cervix and uterus; Z98.51 Tubal ligation status; Z90.89 Acquired absence of other organs; Z96.651 Presence of right artificial knee joint; Z96.652 Presence of left artificial knee joint; Z96.641 Presence of right artificial hip joint; Z88.2 Allergy status to sulfonamides; Z88.1 Allergy status to other antibiotic agents; Z79.899 Other long term (current) drug therapy; Z79.891 Long term (current) use of opiate analgesic; Z82.49 Family history of ischemic heart disease and other diseases of the circulatory system
CPT/HCPCS: 73620

== ENCOUNTER 2020-03-20 12:09 | Emergency (ER) | payer MEDICARE, OTHER ==
[~2020-03-20] VITALS: Ht 170.1 cm; Wt 96.2 kg
[~2020-03-20 12:09] MED LIST changes: +ACHD5005 PO; +ACHYD1T PO; +CEPH500C PO; -HYDR-3820 PO
[2020-03-20 12:15] VITALS: BP 187/64
[2020-03-20 12:49] LABS: CLARITY,URINE CLOUDY; COLOR,URINE YELLOW; GLUCOSE, URINE (UA) NEGATIVE (NEGATIVE); PROTEIN,URINE 2+ (NEGATIVE)
[2020-03-20 12:50] LABS: BACTERIA,URINE LARGE /HPF; BILIRUBIN,URINE NEGATIVE (NEGATIVE); KETONES,URINE NEGATIVE (NEGATIVE); LEUKOCYTE ESTERASE ,URINE 3+ (NEGATIVE); NITRITE,URINE POSITIVE (NEGATIVE); WBC,URINE TNTC /HPF
[2020-03-20] MEDS ORDERED: PHEN-640 PO (13:06)
[2020-03-20] MEDS ORDERED: CEPH500T PO (13:06)
--- NOTE | 2020-03-20 13:07 | ED GU-Female ---
General Chief Complaint: - Urinary Stated Complaint: TROUBLE URINATING Source: patient Exam Limitations: no limitations History of Present Illness Date Seen by Provider: Mar 20, 2020 Time Seen by Provider: 12:55 Initial Comments 74-year-old female presents with discomfort with urination and lower abdominal/pelvic pain for the past several weeks. She saw her urologist for urinary complaints 2 weeks ago was started on estradiol and another medication for her bladder. Patient denies fever or chills or back pain. Denies any nausea vomiting or flank pain. Allergies and Home Medications Allergies Coded Allergies: sulfamethoxazole (Verified Allergy, Unknown, tongue swelling, 12/05/18) trimethoprim (Verified Allergy, Unknown, tongue swelling, 12/05/18) Home Medications Amiodarone HCl 200 Mg Tablet, 200 MG PO DAILY, (Reported) Calcium Carbonate 600 Mg Tablet, 600 MG PO DAILY, (Reported) Cephalexin 500 Mg Capsule, 1 CAP PO TID Prescribed by: JOAN CANALES on 09/16/19 0936 Gabapentin 100 Mg Capsule, 100 MG PO QID, (Reported) Hydrocodone Bit/Acetaminophen 1 Tab Tab, 1-2 TAB PO Q6H PRN for PAIN-MODERATE Prescribed by: JOAN CANALES on 09/16/19 0936 Lisinopril/Hydrochlorothiazide 1 Each Tablet, 1 EACH PO DAILY, (Reported) [place] 3 Polyunsat Fatty Acids 1,000 Mg Cap, 1,000 MG PO DAILY, (Reported) Patient Home Medication List Home Medication List Reviewed: Yes Review of Systems Review of Systems Constitutional: see HPI; No fever, No malaise, No weakness Respiratory: No cough, No short of breath Cardiovascular: No chest pain, No edema, No palpitations Gastrointestinal: abdominal pain; No constipation, No diarrhea, No nausea, No vomiting Genitourinary: see HPI, dysuria, frequency; denies flank pain, denies hematuria, denies incontinence; pain, urgency Musculoskeletal: No back pain, No joint pain, No muscle weakness Past Gjwnogs-Kwymvs-Jxwcon Hx Past Med/Social Hx: Reviewed Nursing Past Med/Soc Hx Patient Social History 2nd Hand Smoke Exposure: No Recent Foreign Travel: No Contact w/Someone Who Travel: No Recent Hopitalizations: No Immunizations Up To Date PED Vaccines UTD: No Date of Pneumonia Vaccine: Dec 05, 2012 Date of Influenza Vaccine: Jun 04, 2019 Seasonal Allergies Seasonal Allergies: No Past Medical History Surgeries: Yes (bilat TKR, R hip replaced, R mastectomy, R foot sx) Hysterectomy Respiratory: No Currently Using CPAP: No Currently Using BIPAP: No Cardiac: Yes Atrial Fibrillation, Hypertension Neurological: Yes (restless legs) Genitourinary: Yes UTI-Chronic Gastrointestinal: No Musculoskeletal: Yes Arthritis Endocrine: No HEENT: Yes (dentures) Cancer: Yes Breast What Type of Treatment Did You: Surgical Intervention Psychosocial: Yes Anxiety, Depression Integumentary: No Blood Disorders: No Physical Exam Vital Signs Capillary Refill : Height, Weight, BMI Height: 5'7.00" Weight: 215lbs. 0.0oz. 97.094651gk; 34.24 BMI Method: General Appearance: WD/WN, no apparent distress Cardiovascular: regular rate, rhythm, no edema Respiratory: chest non-tender, lungs clear Gastrointestinal: soft; No distended, No guarding, No rebound; tenderness (mild -suprapubic); No hernia, No mass Back: no CVA tenderness, no vertebral tenderness Extremities: non-tender, normal inspection Neurologic/Psychiatric: no motor/sensory deficits, alert Skin: normal color, warm/dry Progress/Results/Core Measures Suspected Sepsis SIRS Temperature: Pulse: Respiratory Rate: Blood Pressure / Mean: Results/Orders Lab Results Laboratory Tests Test 03/20/20 12:25 Range/Units Urine Color YELLOW Urine Clarity CLOUDY Urine pH 6.0 5-9 Urine Specific [place] 1.015 L 1.016-1.022 Urine Protein 2+ H NEGATIVE Urine Glucose (UA) NEGATIVE NEGATIVE Urine Ketones NEGATIVE NEGATIVE Urine Nitrite POSITIVE H NEGATIVE Urine Bilirubin NEGATIVE NEGATIVE Urine Urobilinogen 0.2 < = 1.0 MG/DL Urine Leukocyte Esterase 3+ H NEGATIVE Urine RBC (Auto) 3+ H NEGATIVE Urine RBC 5-10 H /HPF Urine WBC TNTC H /HPF Urine Crystals URINE /LPF Urine Bacteria LARGE H /HPF Urine Casts NONE /LPF Urine Mucus NEGATIVE /LPF Urine Culture Indicated YES My Orders Orders - MARCOS ESPINOZA DO Urinalysis (03/20/20 12:30) Urine Culture (03/20/20 12:25) Vital Signs/I&O Capillary Refill : Departure Impression Primary Impression: Urinary tract infection Qualified Codes: N30.00 - Acute cystitis without hematuria Disposition: HOME, SELF-CARE Condition: Stable Departure-Patient Inst. Decision time for Depature: 13:06 Referrals: [facility] (PCP) Primary Care Physician ANTONELLA NUNO APRN (Family) Primary Care Physician Patient Instructions: Urinary Tract Infection, Adult (DC) Add. Discharge Instructions: See her primary care physician or urologist in 1 week for reevaluation and repeat urinalysis. All discharge instructions reviewed with patient and/or family. Voiced understanding. Scripts Phenazopyridine HCl (Pyridium) 200 Mg Tablet 1 TAB PO TID, #6 TAB Prov: MARCOS ESPINOZA DO 03/20/20 Cephalexin (Cephalexin) 500 Mg Tablet 500 MG PO TID, #21 TAB 0 Refills Prov: MARCOS ESPINOZA DO 03/20/20 MARCOS ESPINOZA DO Mar 20, 2020 13:07
[2020-03-20] MEDS ORDERED: SOLI5TAB7 (13:59)
[2020-03-20] MEDS ORDERED: HYDR-3820 (13:59)
[2020-03-20] MEDS ORDERED: ESTR0.5T (13:59)
--- OUTSIDE RECORDS SUMMARY | 2020-03-20 15:22 | XMS REPORT ---
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 Oct, Active 610030108 Problem Mammographic microcalcification R92.0 Sep, Active 99034186169247 Problem Osteoarthritis of left knee M17.12 Dec, Active 685793685 Problem Osteoarthritis of right knee M17.11 Dec, 201 4 Active 465532088 Problem Status post colonoscopy Z98.890 Mar, Act marky 613222776628 Problem Infiltrating ductal carcinoma of breast C50.919 Nov, Active 294679520 Problem Venous ulcer of right lower extremity with varicose veins I83.019 Active 537003778 Problem Greater trochanteric bursitis of left hip M70.62 Apr, Active 18060588 Problem Precordial pain R07.2 Oct, Active 7 1059732 Problem CKD (chronic kidney disease) stage 3, GFR 30-59 ml/min N18.3 08 May, 2017 Active 872507359 Problem 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 Oct, Active 855486137 Problem Paroxysmal atrial fibrillation I48.0 Active 040532746 Problem Anxiety F41.9 Nov, Active 9327639 2 Problem Hammertoe of right foot M20.41 Active 326587469 Problem HTN (hypertension), benign I10 Act marky 86910737 Problem Status post right mastectomy Z90.11 Oct, 201 2 Active 795144902 Problem PAF (paroxysmal atrial fibrillation) I48.0 Active 96646762 Problem History of breast cancer in female Z85.3 Active 262498618 Problem Osteoarthritis, unspecified osteoarthritis type, unspecified site M19.90 Active 941729627 Problem Fibromyalgia M79.7 Active 4963979 05 ALLERGIES No Information ENCOUNTERS Encounter Location Date Diagnosis [address] [address] May, [address] [address] Feb, Fibromyalgia M79.7 ; Osteoarthritis, uns pecified osteoarthritis type, unspecified site M19.90 ; High risk medications (not anticoagulants) long-term use Z79.899 and HTN (hypertension), benign I10 [facility] [address] [place] [address] Feb, UTI (lower urinary tract infection) N39. 0 and Dysuria R30.0 [facility] [address] [place] [address] January, Acute non-recurrent maxillary sinusitis J01.[address] [address] January, Osteoarthritis, unspecified osteoarthrit is type, unspecified site M19.90 [facility] [address] [facility] [id number] [address] [place] [address] Dec, [address] [address] Dec, Paroxysmal atrial fibrillation I48.0 ; B ilateral leg edema R60.0 and Fibromyalgia M79.[address] [address] Nov, [address] [address] Nov, Hammertoe of right foot M20.41 and Pre-o p exam Z01.[address] [address] Nov, Screening mammogram, encounter for Z12.3 1 and History of breast cancer in female Z85.[address] [address] Nov, [address] [address] Nov, [facility] [address] [place] [address] Nov, Osteoarthritis, unspecified osteoarthrit is type, unspecified site M19.90 ; Fibromyalgia M79.7 ; Paroxysmal atrial fibrillation I48.0 and History of breast cancer in female Z85.3 [facility] [address] [id number] [address] [place] [address] Oct, [facility] [address] [id number] [address] [place] [address] Oct, [facility] [address] [place] [address] Oct, [facility] [address] [id number] [address] [place] [address] Sep, [facility] [address] [id number] [address] [place] [address] Aug, [facility] [address] [id number] [address] [place] [address] Aug, [facility] [address] [id number] [address] [place] [address] Jul, [facility] [address] [id number] [address] [place] [address] Jul, [facility] [address] [id number] [address] [place] [address] Dec, [facility] [address] [id number] [address] [place] [address] May, IMMUNIZATIONS No Known Immunizations SOCIAL HISTORY Never Assessed REASON FOR VISIT Requests return call PLAN OF CARE VITAL SIGNS MEDICATIONS Unknown Medications RESULTS No Results PROCEDURES No Known procedures [...] History venous ulcer of right lower extremity wi th varicose veins Medical History CKD (chronic kidney disease)stage 3, GFR ml/min Medical History precordial pain Medical History greater trochanteric bursiitis of left h ip Surgical History breast removal right Surgical History hysterectomy Surgical History knee replacement, bilat Surgical History hip replacement, right Surgical History Toe Surgery Hospitalization History surgeries
--- OUTSIDE RECORDS SUMMARY | 2020-03-20 15:22 | XMS REPORT ---
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 08 Oct, 2011 Active 873566080 Problem Infiltrating ductal carcinoma of breast C50.919 Nov, Active 627245808 Problem Osteoarthritis of left knee M17.12 Dec, Active 014888090 Problem HTN (hypertension), benign I10 Act marky 55724797 Problem Greater trochanteric bursitis of left hip M70.62 Apr, Active 62746737 Problem CKD (chronic kidney disease) stage 3, GFR 30-59 ml/min N18.3 08 May, 2017 Active 261042020 Problem PAF (paroxysmal atrial fibrillation) I48.0 Active 46216578 Problem Osteoarthritis, unspecified osteoarthritis type, unspecified site M19.90 Active 716180026 Problem Hammer toe of left foot M20.42 Active 008026916 Problem Venous ulcer of right lower extremity with varicose veins I83.019 Active 942206260 Problem Morbid (severe) obesity due to excess calories E66 .01 Active 432647701 Problem Anxiety F41.9 Nov, Active 7512442 2 Problem History of breast cancer in female Z85.3 Active 108911468 Problem Fibromyalgia M79.7 Active 1014601 05 Problem Major depressive disorder, single episode, in full remissi on F32.5 Active 09920734 Problem Allergic rhinitis, unspecified seasonality, unspecifie d trigger J30.9 Active 09861736 ALLERGIES Substance Reaction Event Type Date Status Bactrim DS swelling Drug Allergy Nov, Active ENCOUNTERS Encounter Location Date Diagnosis [address] [id number] [place] [address] 10 Feb, 2020 Acute UTI N39.0 ; Urinary re tention R33.9 and Dysuria R30.[address] [id number] [address] 08 Feb, 2020 Fibromyalgia M79.7 [facility] [address] [facility] [id number] [address] [place] [address] 04 Jan, 2020 Dysuria R30.[address] [id number] [address] January, Encounter for Medicare annua l wellness exam Z00.00 ; HTN (hypertension), benign I10 ; CKD (chronic kidney disease) stage 3, GFR 30-59 ml/min N18.3 ; PAF (paroxysmal atrial fibrillation) I48.0 ; Need for shingles vaccine Z23 ; Fibromyalgia M79.7 and UTI symptoms R39.9 [facility] [address] [facility] [id number] [address] [place] [address] Dec, [facility] [address] [id number] [place] [address] Dec, Acute rhinosinusitis J01.90 and UTI symptoms R39.[address] [id number] [address] Dec, Fibromyalgia M79.7 [facility] [address] [facility] [id number] [address] [place] [address] Nov, Fibromyalgia M79.[address] [id number] [address] Nov, HTN (hypertension), benign I 10 ; CKD (chronic kidney disease) stage 3, GFR 30-59 ml/min N18.3 ; Allergic rhinitis, unspecified seasonality, unspecified trigger J30.9 ; Acute non-recurrent maxillary sinusitis J01.00 ; Fibromyalgia M79.7 ; Osteoarthritis, unspecified osteoarthritis type, unspecified site M19.90 ; Leg edema R60.0 ; Medication monitoring encounter Z51.81 and PAF (paroxysmal atrial fibrillation) I48.[address] [id number] [place] [address] Nov, [address] [id number] [place] [address] Nov, Fibromyalgia M79.[address] [id number] [address] Sep, Fibromyalgia M79.[address] [id number] [address] Sep, Fibromyalgia M79.[address] [id number] [address] Sep, [address] [id number] [address] Aug, HTN (hypertension), benign I 10 ; Allergic rhinitis, unspecified seasonality, unspecified trigger J30.9 and Hammer toe of left foot M20.[address] [id number] [address] Aug, Fibromyalgia M79.7 [facility] [address] [id number] [place] [address] Aug, Acute non-recurrent maxillar y sinusitis J01.00 ; Cough R05 and Body aches R52 [facility] [address] [id number] [place] [address] Aug, Acute non-recurrent maxillar y sinusitis J01.00 and Cough R05 [address] [id number] [place] [address] Jun, Fibromyalgia M79.[address] [id number] [address] May, Osteoarthritis, unspecified osteoarthritis type, unspecified site M19.90 ; Fibromyalgia M79.7 and Encounter for immunization Z23 [facility] [place] [address] [id number] [place] [address] May, [facility] [place] [address] [id number] [place] [address] May, Fibromyalgia M79.7 [facility] [place] [address] [id number] [place] [address] Apr, Fibromyalgia M79.7 [facility] [place] [address] [id number] [place] [address] Apr, Acute UTI N39.0 and Pain wit h urination R30.9 [facility] [place] [address] [id number] [place] [address] Apr, [facility] [address] [facility] [id number] [address] [place] [address] Mar, [facility] [address] [id number] [place] [address] Mar, Cystitis N30.90 [facility] [address] [id number] [place] [address] Mar, Cystitis N30.90 [facility] [address] [id number] [place] [address] Mar, Cystitis N30.90 and UTI symp toms R39.9 [facility] [place] [address] [id number] [place] [address] Feb, Fibromyalgia M79.7 ; Osteoar thritis, unspecified osteoarthritis type, unspecified site M19.90 ; High risk medications (not anticoagulants) long-term use Z79.899 and HTN (hypertension), benign I10 [facility] [address] [id number] [place] [address] Feb, UTI (lower urinary tract inf ection) N39.0 and Dysuria R30.0 [facility] [place] [facility] [address] [id number] [place] [address] January, Acute non-recurrent maxillar y sinusitis J01.00 [facility] [place] [address] [id number] [place] [address] January, Osteoarthritis, unspecified osteoarthritis type, unspecified site M19.90 [place] [address] [facility] [id number] [place] [address] Dec, [facility] [place] [address] [id number] [place] [address] Dec, Paroxysmal atrial fibrillati on I48.0 ; Bilateral leg edema R60.0 and Fibromyalgia M79.7 [facility] [place] [address] [id number] [place] [address] Nov, [address] [id number] [place] [address] Nov, Hammertoe of right foot M20. 41 and Pre-op exam Z01.818 [facility] [place] [address] [id number] [place] [address] Nov, Screening mammogram, encount er for Z12.31 and History of breast cancer in female Z85.3 [facility] [place] [address] [id number] [place] [address] Nov, [address] [id number] [address] Nov, [address] [id number] [place] [address] Nov, Osteoarthritis, unspecified osteoarthritis type, unspecified site M19.90 ; Fibromyalgia M79.7 ; Paroxysmal atrial fibrillation I48.0 and History of breast cancer in female Z85.3 [place] [address] [facility] [id number] [place] [address] Oct, [place] [address] [id number] [address] [place] [address] Oct, [facility] [place] [address] [id number] [place] [address] Oct, [facility] [address] [id number] [address] [place] [address] Sep, [facility] [address] [id number] [address] [place] [address] Aug, [facility] [address] [id number] [address] [place] [address] Aug, [facility] [address] [id number] [address] [place] [address] Jul, [facility] [address] [id number] [address] [place] [address] Jul, [facility] [address] [id number] [address] [place] [address] Dec, [facility] [address] [id number] [address] [place] [address] May, IMMUNIZATIONS No Known Immunizations SOCIAL HISTORY Never Assessed REASON FOR VISIT Surgery Clearance for Hammer Toe Surgery PLAN OF CARE Activity Details Follow Up prn Reason: VITAL SIGNS Height 64 in 2018-11-28 Weight 220 lbs 2018-11-28 BMI 37.76 kg/m2 2018-11-28 Blood pressure systolic 146 mmHg 2018-11-28 Blood pressure diastolic 70 mmHg 2018-11-28 MEDICATIONS Medication Instructions Dosage Frequency Start Date End Date Duration S tatus Gabapentin 100 MG Orally Three times a day 1 capsule 8h 30 days Active Calcium Active Amiodarone HCl 200 MG Orally Once a day 2 tablet 24h 30 day(s) Active Lisinopril-Hydrochlorothiazide 20-12.5 MG Orally Once a day 1 table t 24h 07 Oct, 2018 90 days Active Cranberry Active Fish Oil Active Aspirin 325 MG Orally Once a day 1 tablet 24h 30 day (s) Active Alprazolam 0.25 MG Orally three times a daily as needed for anxiety 1 tablet Active Multivitamin Adult - Orally daily 1 tab 24h Active Hydrocodone-Acetaminophen 10-325 MG Orally every 12 hrs as needed for pain 1 tablet as needed Nov, 28 days Active RESULTS No Results PROCEDURES Procedure Date Ordered Result Body Site [facility] VISIT ESTABLISHED PATIENT November 28, 2018 INSTRUCTIONS MEDICATIONS ADMINISTERED No Known Medications MEDICAL (GENERAL) HISTORY Type Description Date Medical History Anxiety Medical History HTN (hypertension), benign Medical History PAF (paroxysmal atrial fibrillation) Medical History CKD (chronic kidney disease) stage 3, GF R 30-59 ml/min Medical History Venous ulcer of right lower extremity wi th varicose veins Medical History Greater trochanteric bursitis of left hi p Medical History Infiltrating ductal carcinoma of breast Medical History Osteoarthritis of left knee Medical History Osteoarthritis of right knee Medical History DCIS (ductal carcinoma in situ) Medical History Status post right mastectomy Medical History Osteoarthritis, unspecified osteoarthritis type, unspecified site Medical History Fibromyalgia Medical History History of breast cancer in female Surgical History breast removal right 11/02/2011 Surgical History hysterectomy Surgical History knee replacement, bilat Surgical History hip replacement, right 08/23/2013 Surgical History colonoscopy flx dx w/collij spec when prfmd-pt to repeat in 10yrs 03/06/2014 Surgical History biopsy/excision, lymph nodes 11/02/2011 Surgical History tonsillectomy Surgical History tubal ligation Surgical History hammer toe 12/2018 Surgical History hammer toe surgery lt 09/2019 Hospitalization History surgeries
--- OUTSIDE RECORDS SUMMARY | 2020-03-20 15:22 | XMS REPORT ---
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 08 Oct, 2011 Active 006902792 Problem Infiltrating ductal carcinoma of breast C50.919 Nov, Active 904613540 Problem Osteoarthritis of left knee M17.12 Dec, Active 942687492 Problem HTN (hypertension), benign I10 Act marky 19100282 Problem Greater trochanteric bursitis of left hip M70.62 Apr, Active 40100451 Problem CKD (chronic kidney disease) stage 3, GFR 30-59 ml/min N18.3 08 May, 2017 Active 445284837 Problem PAF (paroxysmal atrial fibrillation) I48.0 Active 53674137 Problem Osteoarthritis, unspecified osteoarthritis type, unspecified site M19.90 Active 297315667 Problem Hammer toe of left foot M20.42 Active 957716519 Problem Venous ulcer of right lower extremity with varicose veins I83.019 Active 018896492 Problem Morbid (severe) obesity due to excess calories E66 .01 Active 977880418 Problem Anxiety F41.9 Nov, Active 9006427 2 Problem History of breast cancer in female Z85.3 Active 976108557 Problem Fibromyalgia M79.7 Active 2547563 05 Problem Major depressive disorder, single episode, in full remissi on F32.5 Active 12404154 Problem Allergic rhinitis, unspecified seasonality, unspecifie d trigger J30.9 Active 11775247 ALLERGIES No Information ENCOUNTERS Encounter Location Date Diagnosis [facility] [address] [place] [address] Sep, Fibromyalgia M79.7 [address] [place] [address] Sep, [address] [place] [address] Aug, HTN (hypertension), benign I 10 ; Allergic rhinitis, unspecified seasonality, unspecified trigger J30.9 and Hammer toe of left foot M20.[address] [place] [address] Aug, Fibromyalgia M79.7 [facility] [address] [place] [address] Aug, Acute non-recurrent maxillar y sinusitis J01.00 ; Cough R05 and Body aches R52 [facility] [address] [place] [address] Aug, Acute non-recurrent maxillar y sinusitis J01.00 and Cough R05 [address] [place] [address] Jun, Fibromyalgia M79.7 [address] [place] [address] May, Osteoarthritis, unspecified osteoarthritis type, unspecified site M19.90 ; Fibromyalgia M79.7 and Encounter for immunization Z23 [facility] [address] [place] [address] May, [address] [place] [address] May, Fibromyalgia M79.7 [address] [place] [address] Apr, Fibromyalgia M79.7 [address] [place] [address] Apr, Acute UTI N39.0 and Pain wit h urination R30.9 [facility] [address] [facility] [address] [place] [address] Apr, [facility] [address] [facility] [place] [address] Mar, [facility] [address] [place] [address] Mar, Cystitis N30.90 [facility] [address] [place] [address] Mar, Cystitis N30.90 [facility] [address] [place] [address] Mar, Cystitis N30.90 and UTI symp toms R39.9 [facility] [address] [place] [address] Feb, Fibromyalgia M79.7 ; Osteoar thritis, unspecified osteoarthritis type, unspecified site M19.90 ; High risk medications (not anticoagulants) long-term use Z79.899 and HTN (hypertension), benign I10 [facility] [address] [place] [address] Feb, UTI (lower urinary tract inf ection) N39.0 and Dysuria R30.0 [facility] [address] [place] [address] January, Acute non-recurrent maxillar y sinusitis J01.00 [facility] [address] [place] [address] January, Osteoarthritis, unspecified osteoarthritis type, unspecified site M19.90 [facility] [address] [id number] [place] [address] Dec, [facility] [address] [place] [address] Dec, Paroxysmal atrial fibrillati on I48.0 ; Bilateral leg edema R60.0 and Fibromyalgia M79.7 [facility] [address] [place] [address] Nov, [facility] [address] [place] [address] Nov, Hammertoe of right foot M20. 41 and Pre-op exam Z01.818 [facility] [address] [place] [address] Nov, Screening mammogram, encount er for Z12.31 and History of breast cancer in female Z85.3 [facility] [address] [place] [address] Nov, [facility] [address] [place] [address] Nov, [address] [place] [address] Nov, Osteoarthritis, unspecified osteoarthritis type, unspecified site M19.90 ; Fibromyalgia M79.7 ; Paroxysmal atrial fibrillation I48.0 and History of breast cancer in female Z85.3 [facility] [address] [facility] [place] [address] Oct, [facility] [address] [facility] [place] [address] Oct, [address] [place] [address] Oct, [facility] [address] [facility] [place] [address] Sep, [facility] [address] [facility] [place] [address] Aug, [facility] [address] [facility] [place] [address] Aug, [facility] [address] [facility] [place] [address] Jul, [facility] [address] [facility] [place] [address] Jul, [facility] [address] [facility] [id number] [place] [address] Dec, [facility] [address] [facility] [id number] [place] [address] May, IMMUNIZATIONS No Known Immunizations SOCIAL HISTORY Never Assessed REASON FOR VISIT med refill PLAN OF CARE VITAL SIGNS MEDICATIONS Medication Instructions Dosage Frequency Start Date End Date Duration S tatus Amiodarone HCl 200 MG Orally Once a day 2 tablet 24h 30 day(s) Active RESULTS No Results PROCEDURES No Known procedures [...] History colonoscopy flx dx w/collij spec when pr fmd 03/06/2014 Surgical History biopsy/excision, lymph nodes 11/02/2011 Surgical History tonsillectomy Surgical History tubal ligation Surgical History hammer toe 12/2018 Hospitalization History surgeries
--- OUTSIDE RECORDS SUMMARY | 2020-03-20 15:22 | XMS REPORT | Clinical Summary ---
Author Author Admin, Radha GRANADOS Organization [facility] Address Unknown Phone Unavailable Allergies, Adverse Reactions, Alerts Allergy Name Reaction Description Start Date Severity Status Pr ovider No Known Allergies Carolyn Elder Conditions or Problems Problem Name Problem Code Onset Date Status Entry Date Provider Comment Standard Description Annotate U T I-Recurrent Active Manju Jimenez Urinary tract infection, site not specified BMI 33-33.9 Active Manju Quintero MD Body Mass Index 33.0- 33.9, adult Obesity Class I (BMI 30-34.9) Active Manju Quintero MD Obesity, unspecified Incomplete Bladder Emptying 788.20 Active Manju Quintero MD Retention of urine, unspecified Medication List Medication Instructions Start Date Stop Date Generic Name NDC Status Provider Patient Instruction GABAPENTIN 100 MG ORAL CAPSULE one capsule three times daily 01/09 GABAPENTIN 23954653045 Active Manju Quintero MD Active ASPIR-LOW 81 MG ORAL TABLET DELAYED RELEASE once daily ASPIRIN 64754811429 Active Manju Quintero MD Active ADULT ASPIRIN EC LOW STRENGTH 81 MG ORAL TABLET DELAYED RELEASE ASPIRIN 50680060901 No Longer Active Manju Quintero MD Active CEFDINIR 300 MG ORAL CAPSULE CEFDINIR 45744828937 No Longer Active Manju Quintero MD Active LISINOPRIL-HYDROCHLOROTHIAZIDE 20-12.5 MG ORAL TABLET as needed LISINOPRIL-HYDROCHLOROTHIAZIDE 37530620416 Active Manju Quintero MD Active HYDROCODONE-ACETAMINOPHEN 10-325 MG ORAL TABLET as needed HYDROCODONE-ACETAMINOPHEN 14924888443 Active Manju Quintero MD Active ALPRAZOLAM 0.25 MG ORAL TABLET ALPRAZO WATSON 30905646736 No Longer Active Manju Quintero MD Active CYCLOBENZAPRINE HCL 5 MG ORAL TABLET 2019 CYCLOBENZAPRINE HCL 06946353195 No Longer Active Manju Quintero MD Acti ve DULOXETINE HCL 60 MG ORAL CAPSULE DELAYED RELEASE PART ICLES 1 pill daily, for depression DULOXETINE HCL 97850367472 No Longer Active Manju Quintero MD Active CIPRO 250 MG ORAL TABLET 1 tablet by mouth twice daily CIPROFLOXACIN HCL 99119314534 No Longer Active Manju Quintero MD Active DULOXETINE HCL 60 MG ORAL CAPSULE DELAYED RELEASE PART ICLES 1 pill daily, for depression DULOXETINE HCL 60 MG ORAL CAPSULE DELAYED RELEASE PARTICLES 886158 DULOXETINE HCL Inactive CYCLOBENZAPRINE HCL 5 MG ORAL TABLET 2019 CYCLOBENZAPRINE HCL 5 MG ORAL TABLET 763632 CYCLOBENZAPRINE HCL Inactive ALPRAZOLAM 0.25 MG ORAL TABLET ALPRAZOLAM 0.25 MG ORAL TABLET 628315 ALPRAZOLAM Inactive CEFDINIR 300 MG ORAL CAPSULE CEFDINIR 300 MG ORAL CAPSULE 244277 CEFDINIR Inactive ADULT ASPIRIN EC LOW STRENGTH 81 MG ORAL TABLET DELAYED RELEASE ADULT ASPIRIN EC LOW STRENGTH 81 MG ORAL TABLET DELAYED RELE ASE ASPIRIN Inactive CIPRO 250 MG ORAL TABLET 1 tablet by mouth twice daily CIPRO 250 MG ORAL TABLET 394182 CIPROFLOXACIN HCL Inactive Advance Directives Directive Description Start Date PERMISSION TO SHARE Immunizations Vaccine Administration Date Value Standard Sal cription influenza immunization (Flu Vax) has been administered 08/17 Done according to patient influenza virus vaccine, unspecified for mulation Encounters Code Encounter Date Provider Facility CPT-76117 Level 3 Est. Patient 13:49:37 CDT Manju moore MD [facility] CPT-81000 Level 3 Est. 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
--- OUTSIDE RECORDS SUMMARY | 2020-03-20 15:22 | XMS REPORT | Clinical Summary ---
Author Author Admin, Radha GRANADOS Organization [facility] Address Unknown [...] one capsule three times daily 01/09 GABAPENTIN 05378720765 Active Manju Quintero MD Active ASPIR-LOW 81 MG ORAL TABLET DELAYED RELEASE once daily ASPIRIN 08319294561 Active Manju Quintero MD Active ADULT ASPIRIN EC LOW STRENGTH 81 MG ORAL TABLET DELAYED RELEASE ASPIRIN 69475366627 No Longer Active Manju Quintero MD Active CEFDINIR 300 MG ORAL CAPSULE CEFDINIR 45713628688 No Longer Active Manju Quintero MD Active LISINOPRIL-HYDROCHLOROTHIAZIDE 20-12.5 MG ORAL TABLET as needed LISINOPRIL-HYDROCHLOROTHIAZIDE 04548007605 Active Manju Quintero MD Active HYDROCODONE-ACETAMINOPHEN 10-325 MG ORAL TABLET as needed HYDROCODONE-ACETAMINOPHEN 12201280469 Active Manju Quintero MD Active ALPRAZOLAM 0.25 MG ORAL TABLET ALPRAZO WATSON 74308749572 No Longer Active Manju Quintero MD Active CYCLOBENZAPRINE HCL 5 MG ORAL TABLET 2019 CYCLOBENZAPRINE HCL 47222920274 No Longer Active Manju Quintero MD Acti ve DULOXETINE HCL 60 MG ORAL CAPSULE DELAYED RELEASE PART ICLES 1 pill daily, for depression DULOXETINE HCL 16917831269 No Longer Active Manju Quintero MD Active CIPRO 250 MG ORAL TABLET 1 tablet by mouth twice daily CIPROFLOXACIN HCL 63845734874 No Longer Active Manju Quintero MD Active DULOXETINE HCL 60 MG ORAL CAPSULE DELAYED RELEASE PART ICLES 1 pill daily, for depression DULOXETINE HCL 60 MG ORAL CAPSULE DELAYED RELEASE PARTICLES 783362 DULOXETINE HCL Inactive CYCLOBENZAPRINE HCL 5 MG ORAL TABLET 2019 CYCLOBENZAPRINE HCL 5 MG ORAL TABLET 782363 CYCLOBENZAPRINE HCL Inactive ALPRAZOLAM 0.25 MG ORAL TABLET ALPRAZOLAM 0.25 MG ORAL TABLET 991941 ALPRAZOLAM Inactive CEFDINIR 300 MG ORAL CAPSULE CEFDINIR 300 MG ORAL CAPSULE 860294 CEFDINIR Inactive ADULT ASPIRIN EC LOW STRENGTH 81 MG ORAL TABLET DELAYED RELEASE ADULT ASPIRIN EC LOW STRENGTH 81 MG ORAL TABLET DELAYED RELE ASE ASPIRIN Inactive CIPRO 250 MG ORAL TABLET 1 tablet by mouth twice daily CIPRO 250 MG ORAL TABLET 572800 CIPROFLOXACIN HCL Inactive Advance Directives Directive Description Start Date PERMISSION TO SHARE Immunizations Vaccine Administration Date Value Standard Sal cription influenza immunization (Flu Vax) has been administered 08/17 Done according to patient influenza virus vaccine, unspecified for mulation Encounters Code Encounter Date Provider Facility CPT-54856 Level 3 Est. Patient 13:49:37 CDT Manju moore MD [facility] CPT-78612 Level 3 Est. 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 Patient 08:12:19 CDT J Rakesh moore MD [facility] Procedures Code Procedure Name Date Entry Date Standard Desc ription CPT-87269 Dil F ureth int 13:49:37 CDT CPT-74632 Bladder Scan 13:49:37 CDT CPT-05403 Bladder Scan 14:54:14 OIL LABORATORY ANALYST
--- OUTSIDE RECORDS SUMMARY | 2020-03-20 15:22 | XMS REPORT | Clinical Summary ---
Author Author Admin, Radha GRANADOS Organization [facility] Address Unknown Phone Unavailable Allergies, Adverse [...] one capsule three times daily 01/09 GABAPENTIN 12939554395 Active Manju Quintero MD Active ASPIR-LOW 81 MG ORAL TABLET DELAYED RELEASE once daily ASPIRIN 00760100911 Active Manju Quintero MD Active ADULT ASPIRIN EC LOW STRENGTH 81 MG ORAL TABLET DELAYED RELEASE ASPIRIN 76169608646 No Longer Active Manju Quintero MD Active CEFDINIR 300 MG ORAL CAPSULE CEFDINIR 00731461233 No Longer Active Manju Quintero MD Active LISINOPRIL-HYDROCHLOROTHIAZIDE 20-12.5 MG ORAL TABLET as needed LISINOPRIL-HYDROCHLOROTHIAZIDE 78883087718 Active Manju Quintero MD Active HYDROCODONE-ACETAMINOPHEN 10-325 MG ORAL TABLET as needed HYDROCODONE-ACETAMINOPHEN 36202064051 Active Manju Quintero MD Active ALPRAZOLAM 0.25 MG ORAL TABLET ALPRAZO WATSON 78514523987 No Longer Active Manju Quintero MD Active CYCLOBENZAPRINE HCL 5 MG ORAL TABLET 2019 CYCLOBENZAPRINE HCL 60277995632 No Longer Active Manju Quintero MD Acti ve DULOXETINE HCL 60 MG ORAL CAPSULE DELAYED RELEASE PART ICLES 1 pill daily, for depression DULOXETINE HCL 32019290247 No Longer Active Manju Quintero MD Active CIPRO 250 MG ORAL TABLET 1 tablet by mouth twice daily CIPROFLOXACIN HCL 69842918631 No Longer Active Manju Quintero MD Active DULOXETINE HCL 60 MG ORAL CAPSULE DELAYED RELEASE PART ICLES 1 pill daily, for depression DULOXETINE HCL 60 MG ORAL CAPSULE DELAYED RELEASE PARTICLES 862532 DULOXETINE HCL Inactive CYCLOBENZAPRINE HCL 5 MG ORAL TABLET 2019 CYCLOBENZAPRINE HCL 5 MG ORAL TABLET 998445 CYCLOBENZAPRINE HCL Inactive ALPRAZOLAM 0.25 MG ORAL TABLET ALPRAZOLAM 0.25 MG ORAL TABLET 345948 ALPRAZOLAM Inactive CEFDINIR 300 MG ORAL CAPSULE CEFDINIR 300 MG ORAL CAPSULE 928958 CEFDINIR Inactive ADULT ASPIRIN EC LOW STRENGTH 81 MG ORAL TABLET DELAYED RELEASE ADULT ASPIRIN EC LOW STRENGTH 81 MG ORAL TABLET DELAYED RELE ASE ASPIRIN Inactive CIPRO 250 MG ORAL TABLET 1 tablet by mouth twice daily CIPRO 250 MG ORAL TABLET 537196 CIPROFLOXACIN HCL Inactive Advance Directives Directive Description Start Date PERMISSION TO SHARE Immunizations Vaccine Administration Date Value Standard Sal cription influenza immunization (Flu Vax) has been administered 08/17 Done according to patient influenza virus vaccine, unspecified for mulation Encounters Code Encounter Date Provider Facility CPT-65753 Level 3 Est. Patient 13:49:37 CDT Manju moore MD [facility] CPT-36168 Level 3 Est. 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 Patient 08:12:19 CDT J Rakesh moore MD [facility] Procedures Code Procedure Name Date Entry Date Standard Desc ription CPT-93855 Dil F ureth int 13:49:37 CDT CPT-54087 Bladder Scan 13:49:37 CDT CPT-43826 Bladder Scan 14:54:14 SPEEDOMETER INSPECTOR
--- OUTSIDE RECORDS SUMMARY | 2020-03-20 15:22 | XMS REPORT | Clinical Summary ---
Author Author Admin, Radha GRANADOS Organization [facility] Address Unknown Phone Unavailable Allergies, Adverse [...] one capsule three times daily 01/09 GABAPENTIN 79959655180 Active Manju Quintero MD Active ASPIR-LOW 81 MG ORAL TABLET DELAYED RELEASE once daily ASPIRIN 85595999670 Active Manju Quintero MD Active ADULT ASPIRIN EC LOW STRENGTH 81 MG ORAL TABLET DELAYED RELEASE ASPIRIN 24825374919 No Longer Active Manju Quintero MD Active CEFDINIR 300 MG ORAL CAPSULE CEFDINIR 23182513127 No Longer Active Manju Quintero MD Active LISINOPRIL-HYDROCHLOROTHIAZIDE 20-12.5 MG ORAL TABLET as needed LISINOPRIL-HYDROCHLOROTHIAZIDE 06179435103 Active Manju Quintero MD Active HYDROCODONE-ACETAMINOPHEN 10-325 MG ORAL TABLET as needed HYDROCODONE-ACETAMINOPHEN 31622724159 Active Manju Quintero MD Active ALPRAZOLAM 0.25 MG ORAL TABLET ALPRAZO WATSON 58886609958 No Longer Active Manju Quintero MD Active CYCLOBENZAPRINE HCL 5 MG ORAL TABLET 2019 CYCLOBENZAPRINE HCL 07785838859 No Longer Active Manju Quintero MD Acti ve DULOXETINE HCL 60 MG ORAL CAPSULE DELAYED RELEASE PART ICLES 1 pill daily, for depression DULOXETINE HCL 60194655897 No Longer Active Manju Quintero MD Active CIPRO 250 MG ORAL TABLET 1 tablet by mouth twice daily CIPROFLOXACIN HCL 36005926683 No Longer Active Manju Quintero MD Active DULOXETINE HCL 60 MG ORAL CAPSULE DELAYED RELEASE PART ICLES 1 pill daily, for depression DULOXETINE HCL 60 MG ORAL CAPSULE DELAYED RELEASE PARTICLES 325201 DULOXETINE HCL Inactive CYCLOBENZAPRINE HCL 5 MG ORAL TABLET 2019 CYCLOBENZAPRINE HCL 5 MG ORAL TABLET 777511 CYCLOBENZAPRINE HCL Inactive ALPRAZOLAM 0.25 MG ORAL TABLET ALPRAZOLAM 0.25 MG ORAL TABLET 203036 ALPRAZOLAM Inactive CEFDINIR 300 MG ORAL CAPSULE CEFDINIR 300 MG ORAL CAPSULE 818971 CEFDINIR Inactive ADULT ASPIRIN EC LOW STRENGTH 81 MG ORAL TABLET DELAYED RELEASE ADULT ASPIRIN EC LOW STRENGTH 81 MG ORAL TABLET DELAYED RELE ASE ASPIRIN Inactive CIPRO 250 MG ORAL TABLET 1 tablet by mouth twice daily CIPRO 250 MG ORAL TABLET 229106 CIPROFLOXACIN HCL Inactive Advance Directives Directive Description Start Date PERMISSION TO SHARE Immunizations Vaccine Administration Date Value Standard Sal cription influenza immunization (Flu Vax) has been administered 08/17 Done according to patient influenza virus vaccine, unspecified for mulation Encounters Code Encounter Date Provider Facility CPT-58336 Level 3 Est. Patient 13:49:37 CDT Manju moore MD [facility] CPT-13477 Level 3 Est. 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 Patient 08:12:19 CDT J Rakesh moore MD [facility] Procedures Code Procedure Name Date Entry Date Standard Desc ription CPT-48956 Dil F ureth int 13:49:37 CDT CPT-56935 Bladder Scan 13:49:37 CDT CPT-29612 Bladder Scan 14:54:14 FILM PROCESSING UTILITY WORKER
--- OUTSIDE RECORDS SUMMARY | 2020-03-20 15:23 | XMS REPORT | Continuity of Care Document ---
Author Organization Unknown Address Unknown Phone Unavailable Allergies Active Description Code Type Severity Reaction Onset Reported/Identified Relationship to Patient Clinical Status Yes sulfamethoxazole [id number] Drug Allergy Unknown tongue swelling 11/2018 Yes trimethoprim [id number] Drug Allergy Unknown tongue swelling 12/05/2018 Medications There is no data. Problems Date Dx Coded Attending Type Code Diagnosis Diagnosed By 06/21/2017 Manju Quintero MD N3 9.0 U T I-Recurrent 08/17/2018 Manju Quintero MD E6 6.9 Obesity Class I (BMI 30-34.9) 08/17/2018 Manju Quintero MD Z68.33 BMI 33-33.9 12/05/2018 PARKER DPM, JOAN Q Ot Z01.818 ENCOUNTER FOR OTHER PREPROCEDURAL EXAMIN 12/07/2018 PARKER DPM, JOAN Q Ot Z01.818 ENCOUNTER FOR OTHER PREPROCEDURAL EXAMIN 12/10/2018 PARKER DPM, JOAN Q Ot E66. 9 OBESITY, UNSPECIFIED 12/10/2018 PARKER DPM, JOAN Q Ot F32. 9 MAJOR DEPRESSIVE DISORDER, SINGLE EPISOD 12/10/2018 PARKER DPM, JOAN Q Ot F41. 9 ANXIETY DISORDER, UNSPECIFIED 12/10/2018 PARKER DPM, JOAN Q Ot G25. 81 RESTLESS LEGS SYNDROME 12/10/2018 PARKER DPM, JOAN Q Ot I12. 9 HYPERTENSIVE CHRONIC KIDNEY DISEASE W ST 12/10/2018 PARKER DPM, JOAN Q Ot I27. 20 PULMONARY HYPERTENSION, UNSPECIFIED 12/10/2018 PARKER DPM, JOAN Q Ot I48. 0 PAROXYSMAL ATRIAL FIBRILLATION 12/10/2018 PARKER DPM, JOAN Q Ot M17. 0 BILATERAL PRIMARY OSTEOARTHRITIS OF KNEE 12/10/2018 PARKER DPM, JOAN Q Ot M20. 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 41 OTHER HAMMER TOE(S) (ACQUIRED), RIGHT FO 12/10/2018 PARKER DPM, JOAN Q Ot M70. 62 TROCHANTERIC BURSITIS, LEFT HIP 12/10/2018 PARKER DPM, JOAN Q Ot M79. 7 FIBROMYALGIA 12/10/2018 PARKER DPM, JOAN Q Ot N18. 3 CHRONIC KIDNEY DISEASE, STAGE 3 (MODERAT 12/10/2018 PARKER DPM, JOAN Q Ot Z11. 2 ENCOUNTER FOR SCREENING FOR OTHER BACTER 12/10/2018 PARKER DPM, JOAN Q Ot Z68. 33 BODY MASS INDEX (BMI) 33.0-33.9, ADULT 12/10/2018 PARKER DPM, JOAN Q Ot Z79.899 OTHER LONG-TERM (CURRENT) DRUG THERAPY 12/10/2018 PARKER DPM, JOAN Q Ot Z85. 3 PERSONAL HISTORY OF MALIGNANT NEOPLASM O 12/10/2018 PARKER DPM, JOAN Q Ot Z86.718 PERSONAL HISTORY OF OTHER VENOUS THROMBO 12/10/2018 PARKER DPM, JOAN Q Ot Z88. 2 ALLERGY STATUS TO SULFONAMIDES STATUS 12/10/2018 PARKER DPM, JOAN Q Ot Z90. 11 ACQUIRED ABSENCE OF RIGHT BREAST AND NIP 12/10/2018 PARKER DPM, JOAN Q Ot Z96.641 PRESENCE OF RIGHT ARTIFICIAL HIP JOINT 12/10/2018 PARKER DPM, JOAN Q Ot Z96.653 PRESENCE OF ARTIFICIAL KNEE JOINT, BILAT 12/11/2018 PARKER DPM, JOAN Q Ot Z01.818 ENCOUNTER FOR OTHER PREPROCEDURAL EXAMIN 12/11/2018 PARKER DPM, JOAN Q Ot E66. 9 OBESITY, UNSPECIFIED 12/11/2018 PARKER DPM, JOAN Q Ot F32. 9 MAJOR DEPRESSIVE DISORDER, SINGLE EPISOD 12/11/2018 PARKER DPM, JOAN Q Ot F41. 9 ANXIETY DISORDER, UNSPECIFIED 12/11/2018 PARKER DPM, JOAN Q Ot G25. 81 RESTLESS LEGS SYNDROME 12/11/2018 PARKER DPM, JOAN Q Ot I12. 9 HYPERTENSIVE CHRONIC KIDNEY DISEASE W ST 12/11/2018 PARKER DPM, JOAN Q Ot I27. 20 PULMONARY HYPERTENSION, UNSPECIFIED 12/11/2018 PARKER DPM, JOAN Q Ot I48. 0 PAROXYSMAL ATRIAL FIBRILLATION 12/11/2018 PARKER DPM, JOAN Q Ot M17. 0 BILATERAL PRIMARY OSTEOARTHRITIS OF KNEE 12/11/2018 PARKER DPM, JOAN Q Ot M20. 31 HALLUX VARUS (ACQUIRED), RIGHT FOOT 12/11/2018 PARKER DPM, JOAN Q Ot M20. 41 OTHER HAMMER TOE(S) (ACQUIRED), RIGHT FO 12/11/2018 PARKER DPM, JOAN Q Ot M70. 62 TROCHANTERIC BURSITIS, LEFT HIP 12/11/2018 PARKER DPM, JOAN Q Ot M79. 7 FIBROMYALGIA 12/11/2018 PARKER DPM, JOAN Q Ot N18. 3 CHRONIC KIDNEY DISEASE, STAGE 3 (MODERAT 12/11/2018 PARKER DPM, JOAN Q Ot Z11. 2 ENCOUNTER FOR SCREENING FOR OTHER BACTER 12/11/2018 PARKER DPM, JOAN Q Ot Z68. 33 BODY MASS INDEX (BMI) 33.0-33.9, ADULT 12/11/2018 PARKER DPM, JOAN Q Ot Z79.899 OTHER LONG-TERM (CURRENT) DRUG THERAPY 12/11/2018 PARKER DPM, JOAN Q Ot Z85. 3 PERSONAL HISTORY OF MALIGNANT NEOPLASM O 12/11/2018 PARKER DPM, JOAN Q Ot Z86.718 PERSONAL HISTORY OF OTHER VENOUS THROMBO 12/11/2018 PARKER DPM, JOAN Q Ot Z88. 2 ALLERGY STATUS TO SULFONAMIDES STATUS 12/11/2018 PARKER DPM, JOAN Q Ot Z90. 11 ACQUIRED ABSENCE OF RIGHT BREAST AND NIP 12/11/2018 PARKER DPM, JOAN Q Ot Z96.641 PRESENCE OF RIGHT ARTIFICIAL HIP JOINT 12/11/2018 PARKER DPM, JOAN Q Ot Z96.653 PRESENCE OF ARTIFICIAL KNEE JOINT, BILAT 09/11/2019 PARKER DPM, JOAN Q Ot Z01.818 ENCOUNTER FOR OTHER PREPROCEDURAL EXAMIN 09/16/2019 PARKER DPM, JOAN Q Ot I12. 9 HYPERTENSIVE CHRONIC KIDNEY DISEASE W ST 09/16/2019 PARKER DPM, JOAN Q Ot I48. 0 PAROXYSMAL ATRIAL FIBRILLATION 09/16/2019 PARKER DPM, JOAN Q Ot J30. 9 ALLERGIC RHINITIS, UNSPECIFIED 09/16/2019 PARKER DPM, JOAN Q Ot M17. 0 BILATERAL PRIMARY OSTEOARTHRITIS OF KNEE 09/16/2019 PARKER DPM, JOAN Q Ot M20. 42 OTHER HAMMER TOE(S) (ACQUIRED), LEFT SHEILA 09/16/2019 PARKER DPM, JOAN Q Ot M79. 7 FIBROMYALGIA 09/16/2019 PARKER DPM, JOAN Q Ot M89.8X7 OTHER SPECIFIED DISORDERS OF BONE, ANKLE 09/16/2019 PARKER DPM, JOAN Q Ot N18. 3 CHRONIC KIDNEY DISEASE, STAGE 3 (MODERAT 09/16/2019 PARKER DPM, JOAN Q Ot Z79.891 LONG-TERM (CURRENT) USE OF OPIATE ANALGE 09/16/2019 PARKER DPM, JOAN Q Ot Z79.899 OTHER ASSEMBLY MEMBER (CURRENT) DRUG THERAPY 09/16/2019 PARKER DPM, JOAN Q Ot Z82. 49 FAMILY HX OF ISCHEM HEART DIS AND OTH DI 09/16/2019 PARKER DPM, JOAN Q Ot Z88. 1 ALLERGY STATUS TO OTHER ANTIBIOTIC AGENT 09/16/2019 PARKER DPM, JOAN Q Ot Z88. 2 ALLERGY STATUS TO SULFONAMIDES STATUS 09/16/2019 PARKER DPM, JOAN Q Ot Z90.710 ACQUIRED ABSENCE OF BOTH CERVIX AND UTER 09/16/2019 PARKER DPM, JOAN Q Ot Z90. 89 ACQUIRED ABSENCE OF OTHER ORGANS 09/16/2019 PARKER DPM, JOAN Q Ot Z96.641 PRESENCE OF RIGHT ARTIFICIAL HIP JOINT 09/16/2019 PARKER DPM, JOAN Q Ot Z96.651 PRESENCE OF RIGHT ARTIFICIAL KNEE JOINT 09/16/2019 PARKER DPM, JOAN Q Ot Z96.652 PRESENCE OF LEFT ARTIFICIAL KNEE JOINT 09/16/2019 PARKER DPM, JOAN Q Ot Z98. 51 TUBAL LIGATION STATUS 09/18/2019 PARKER DPM, JOAN Q Ot I12. 9 HYPERTENSIVE CHRONIC KIDNEY DISEASE W ST 09/18/2019 PARKER DPM, JOAN Q Ot I48. 0 PAROXYSMAL ATRIAL FIBRILLATION 09/18/2019 PARKER DPM, JOAN Q Ot J30. 9 ALLERGIC RHINITIS, UNSPECIFIED 09/18/2019 PARKER DPM, JOAN Q Ot M17. 0 BILATERAL PRIMARY OSTEOARTHRITIS OF KNEE 09/18/2019 PARKER DPM, JOAN Q Ot M20. 42 OTHER HAMMER TOE(S) (ACQUIRED), LEFT SHEILA 09/18/2019 PARKER DPM, JOAN Q Ot M79. 7 FIBROMYALGIA 09/18/2019 PARKER DPM, JOAN Q Ot M89.8X7 OTHER SPECIFIED DISORDERS OF BONE, ANKLE 09/18/2019 PARKER DPM, JOAN Q Ot N18. 3 CHRONIC KIDNEY DISEASE, STAGE 3 (MODERAT 09/18/2019 PARKER DPM, JOAN Q Ot Z79.891 LONG-TERM (CURRENT) USE OF OPIATE ANALGE 09/18/2019 PARKER DPM, JOAN Q Ot Z79.899 OTHER ASSEMBLY MEMBER (CURRENT) DRUG THERAPY 09/18/2019 PARKER DPM, JOAN Q Ot Z82. 49 FAMILY HX OF ISCHEM HEART DIS AND OTH DI 09/18/2019 PARKER DPM, JOAN Q Ot Z88. 1 ALLERGY STATUS TO OTHER ANTIBIOTIC AGENT 09/18/2019 PARKER DPM, JOAN Q Ot Z88. 2 ALLERGY STATUS TO SULFONAMIDES STATUS 09/18/2019 PARKER DPM, JOAN Q Ot Z90.710 ACQUIRED ABSENCE OF BOTH CERVIX AND UTER 09/18/2019 PARKER DPM, JOAN Q Ot Z90. 89 ACQUIRED ABSENCE OF OTHER ORGANS 09/18/2019 PARKER DPM, JOAN Q Ot Z96.641 PRESENCE OF RIGHT ARTIFICIAL HIP JOINT 09/18/2019 PARKER DPM, JOAN Q Ot Z96.651 PRESENCE OF RIGHT ARTIFICIAL KNEE JOINT 09/18/2019 PARKER DPM, JOAN Q Ot Z96.652 PRESENCE OF LEFT ARTIFICIAL KNEE JOINT 09/18/2019 PARKER DPM, JOAN Q Ot Z98. 51 TUBAL LIGATION STATUS 01/10/2020 Leon ABDI, Manju Cameron R3 3.9 Incomplete Bladder Emptying Procedures There is no data. Results Test Result Range Methicillin resistant Staphylococcus aur eus (MRSA) screening culture - 12/10/18 08:45 Methicillin resistant Staphylococcus aureus (MRSA) scr eening culture NEG NRG CULTURE, URINE - 02/16/19 09:38 CULTURE, URINE, ROUTINE SEE NOTE NRG PDM - 09 PANEL (PROFILE 1) - 02/27/19 10 :07 Creatinine 55.7 mg/dL > or = 20.0 pH 5.95 4.5 - 9.0 Oxidant NEGATIVE mcg/mL <200 Amphetamines NEGATIVE ng/mL <500 medMATCH Amphetamines CONSISTENT NRG Benzodiazepines NEGATIVE ng/mL <100 medMATCH Benzodiazepines CONSISTENT NRG Marijuana Metabolite NEGATIVE ng/mL <20 medMATCH Marijuana Metab CONSISTENT NRG Cocaine Metabolite NEGATIVE ng/mL <150 medMATCH Cocaine Metab CONSISTENT NRG Opiates POSITIVE ng/mL <100 Oxycodone NEGATIVE ng/mL <100 medMATCH Oxycodone CONSISTENT NRG COMMENT NRG Codeine NEGATIVE ng/mL <50 medMATCH Codeine CONSISTENT NRG Hydrocodone 337 ng/mL <50 medMATCH Hydrocodone CONSISTENT NRG Hydromorphone 246 ng/mL <50 medMATCH Hydromorphone CONSISTENT NRG Morphine NEGATIVE ng/mL <50 medMATCH Morphine CONSISTENT NRG Norhydrocodone 312 ng/mL <50 medMATCH Norhydrocodone CONSISTENT NRG Prescribed Drug 2 Gabapentin NRG Prescribed Drug 3 Hydrocodone NRG Barbiturates NEGATIVE ng/mL <300 medMATCH Barbiturates CONSISTENT NRG Methadone Metabolite NEGATIVE ng/mL <100 medMATCH Methadone Metab CONSISTENT NRG Phencyclidine NEGATIVE ng/mL <25 medMATCH Phencyclidine CONSISTENT NRG PDM - GABAPENTIN - 02/27/19 10:07 COMMENT NRG Prescribed Drug 2 Gabapentin NRG Prescribed Drug 3 Hydrocodone NRG Gabapentin 30649 ng/mL <1000 medMATCH Gabapentin CONSISTENT NRG CULTURE, URINE - 03/13/19 09:41 CULTURE, URINE, ROUTINE SEE NOTE NRG CULTURE, URINE - 04/15/19 10:06 CULTURE, URINE, ROUTINE SEE NOTE NRG PDM - 09 PANEL (PROFILE 1) - 06/03/19 10 :22 Prescribed Drug 1 [place](TM) NRG Creatinine 44.5 mg/dL > or = 20.0 pH 5.4 4.5-9.0 Oxidant NEGATIVE mcg/mL <200 Amphetamines NEGATIVE ng/mL <500 medMATCH Amphetamines CONSISTENT NRG Benzodiazepines NEGATIVE ng/mL <100 medMATCH Benzodiazepines CONSISTENT NRG Marijuana Metabolite NEGATIVE ng/mL <20 medMATCH Marijuana Metab CONSISTENT NRG Cocaine Metabolite NEGATIVE ng/mL <150 medMATCH Cocaine Metab CONSISTENT NRG Opiates POSITIVE ng/mL <100 Oxycodone NEGATIVE ng/mL <100 medMATCH Oxycodone CONSISTENT NRG COMMENT NRG Codeine NEGATIVE ng/mL <50 medMATCH Codeine CONSISTENT NRG Hydrocodone 655 ng/mL <50 medMATCH Hydrocodone CONSISTENT NRG Hydromorphone 199 ng/mL <50 medMATCH Hydromorphone CONSISTENT NRG Morphine NEGATIVE ng/mL <50 medMATCH Morphine CONSISTENT NRG Norhydrocodone 499 ng/mL <50 medMATCH Norhydrocodone CONSISTENT NRG Prescribed Drug 2 Gabapentin NRG Barbiturates NEGATIVE ng/mL <300 medMATCH Barbiturates CONSISTENT NRG Methadone Metabolite NEGATIVE ng/mL <100 medMATCH Methadone Metab CONSISTENT NRG Phencyclidine NEGATIVE ng/mL <25 medMATCH Phencyclidine CONSISTENT NRG Methicillin resistant Staphylococcus aur eus (MRSA) screening culture - 09/09/19 13:57 Methicillin resistant Staphylococcus aureus (MRSA) scr eening culture NEG NRG CMP - 11/12/19 11:15 GLUCOSE 83 mg/dL 65-99 UREA NITROGEN (BUN) 22 mg/dL 7-25 CREATININE 1.05 mg/dL 0.60-0.93 eGFR NON-AFR. [place] 52 mL/min/1.73m2 > OR = 60 eGFR 60 mL/min/1.73m2 > OR = 60 BUN/CREATININE RATIO 21 (calc) 6-22 SODIUM 138 mmol/L 135-146 POTASSIUM 4.4 mmol/L 3.5-5.3 CHLORIDE 104 mmol/L 98-110 CARBON DIOXIDE 24 mmol/L 20-32 CALCIUM 9.5 mg/dL 8.6-10.4 PROTEIN, TOTAL 6.9 g/dL 6.1-8.1 ALBUMIN 4.4 g/dL 3.6-5.1 GLOBULIN 2.5 g/dL (calc) 1.9-3.7 ALBUMIN/GLOBULIN RATIO 1.8 (calc) 1.0-2. 5 BILIRUBIN, TOTAL 0.6 mg/dL 0.2-1.2 ALKALINE PHOSPHATASE 96 U/L 37-153 AST 26 U/L 10-35 ALT 18 U/L 6-29 CBC - 11/12/19 11:15 WHITE BLOOD CELL COUNT 6.2 Thousand/uL 3 .8-10.8 RED BLOOD CELL COUNT 3.62 Million/uL 3.8 0-5.10 HEMOGLOBIN 11.1 g/dL 11.7-15.5 HEMATOCRIT 33.4 % 35.0-45.0 MCV 92.3 fL 80.0-100.0 MCH 30.7 pg 27.0-33.0 MCHC 33.2 g/dL 32.0-36.0 RDW 12.6 % 11.0-15.0 PLATELET COUNT 251 Thousand/uL 140-400 MPV 10.7 fL 7.5-12.5 ABSOLUTE NEUTROPHILS 4055 cells/uL 1500- 7800 ABSOLUTE LYMPHOCYTES 1339 cells/uL 850-3 900 ABSOLUTE MONOCYTES 434 cells/uL 200-950 ABSOLUTE EOSINOPHILS 304 cells/uL 15-500 ABSOLUTE BASOPHILS 68 cells/uL 0-200 NEUTROPHILS 65.4 % NRG LYMPHOCYTES 21.6 % NRG MONOCYTES 7.0 % NRG EOSINOPHILS 4.9 % NRG BASOPHILS 1.1 % NRG TSH - 11/12/19 11:15 TSH 1.44 mIU/L 0.40-4.50 CULTURE, URINE - 12/14/19 08:21 CULTURE, URINE, ROUTINE SEE NOTE NRG CULTURE, URINE - 01/06/20 10:15 CULTURE, URINE, ROUTINE SEE NOTE NRG CULTURE, URINE - 02/12/20 10:36 CULTURE, URINE, ROUTINE SEE NOTE NRG Complete urinalysis with reflex to cultu re - 03/20/20 12:25 Urine color determination YELLOW NRG Urine clarity determination CLOUDY NR G Urine pH measurement by test strip 6.0 5-9 Specific gravity of urine by test strip 1.015 1.016-1.022 Urine protein assay by test strip, semi-quantitative 2+ NEGATIVE Urine glucose detection by automated test strip NE GATIVE NEGATIVE Erythrocytes detection in urine sediment by light micr oscopy 3+ NEGATIVE Urine ketones detection by automated test strip NE GATIVE NEGATIVE Urine nitrite detection by test strip POSITIVE NEGATIVE Urine total bilirubin detection by test strip NEGA TIVE NEGATIVE Urine urobilinogen measurement by automated test strip (mass/volume) 0.2 mg/dL < = 1.0 Urine leukocyte esterase detection by dipstick 3+ NEGATIVE Automated urine sediment erythrocyte cou nt by microscopy (number/high power field) [HPF] NRG Automated urine sediment leukocyte count by microscopy (number/high power field) TNTC NRG Bacteria detection in urine sediment by light microsco py LARGE NRG Crystals detection in urine sediment by light microsco py URINE NRG Casts detection in urine sediment by light microscopy NONE NRG Mucus detection in urine sediment by light microscopy NEGATIVE NRG Complete urinalysis with reflex to culture YES NRG Encounters ACCT No. Visit Date/Time Discharge Status Pt. Type Provider Facility Loc./Unit Complaint [id number] 02/12/2020 10:00:00 02/12/2020 23:59: 59 [facility] [id number] 02/12/2020 10:00:00 Document Registration [id number] 01/06/2020 09:00:00 Document Registration [id number] 12/14/2019 08:00:00 Document Registration [id number] 11/12/2019 10:00:00 Document Registration [id number] 06/03/2019 09:00:00 Document Registration [id number] 04/15/2019 09:45:00 Document Registration [id number] 03/13/2019 09:30:00 Document Registration [id number] 02/27/2019 08:40:00 Document Registration [id number] 02/16/2019 09:10:00 Document Registration [id number] 01/10/2020 13:13:00 ACT Unknown Manju Quintero MD [id number] 09/16/2019 06:05:00 11:40:00 DIS Outpatient PARKER DPM, JOAN Q Via [facility] [place] 2-5 LEFT SHEILA T [id number] 09/09/2019 13:34:00 14:00:00 DIS Outpatient PARKER DPM, JOAN Q [facility] [place] 2-5 LEFT SHEILA T [id number] 12/10/2018 08:03:00 14:30:00 DIS Outpatient PARKER DPM, JOAN Q [facility] [place] RIGHT FOOT [id number] 12/05/2018 13:07:00 019 13:53:00 DIS Outpatient PARKER DPM, JOAN Q [facility] [place] RIGHT FOOT [id number] 03/20/2020 12:50:00 Document Registration
== END 2020-03-20 13:14 | disposition home or self-care (01) ==
LOC: EDUNIT# 12:09 → ER FS 12:10
DX: N39.0 Urinary tract infection, site not specified (principal); I10 Essential (primary) hypertension; I48.91 Unspecified atrial fibrillation; Z88.2 Allergy status to sulfonamides; Z88.1 Allergy status to other antibiotic agents; Z85.3 Personal history of malignant neoplasm of breast; Z96.653 Presence of artificial knee joint, bilateral; Z96.641 Presence of right artificial hip joint
CPT/HCPCS: 81000; 87077; 87088; 87186; 99282

== ENCOUNTER 2020-04-09 13:33 | Outpatient (CLI) | payer MEDICARE, OTHER ==
[~2020-04-09] VITALS: Ht 170.2 cm; Wt 95.6 kg
[~2020-04-09 13:33] MED LIST changes: -CALC600T12 PO; +CALC600T14 PO; +CEPH500T PO; +ESTR0.5T; +HYDR-3820; +PHEN-640 PO; +SOLI5TAB7
[2020-04-09 13:43] VITALS: BP 160/79
[2020-04-09] MEDS ORDERED: MU-V1TAB28 PO (13:46)
[2020-04-09] MEDS ORDERED: ASPI-808 PO (13:46)
[2020-04-09 14:11] LABS: BILIRUBIN,URINE NEGATIVE (NEGATIVE); CLARITY,URINE CLEAR; COLOR,URINE YELLOW; GLUCOSE, URINE (UA) NEGATIVE (NEGATIVE); KETONES,URINE NEGATIVE (NEGATIVE); LEUKOCYTE ESTERASE ,URINE 1+ (NEGATIVE); NITRITE,URINE NEGATIVE (NEGATIVE); PROTEIN,URINE NEGATIVE (NEGATIVE)
[2020-04-09 14:39] LABS: BACTERIA,URINE NEGATIVE /HPF
== END 2020-04-09 14:18 | disposition home or self-care (01) ==
LOC: PREOP 13:33 → EDSTATUS 14:00 → PREOP 14:18
PROVIDERS: ATTEND Urology
DX: Z01.812 Encounter for preprocedural laboratory examination (principal); Z11.2 Encounter for screening for other bacterial diseases; N81.10 Cystocele, unspecified; R32 Unspecified urinary incontinence; R33.9 Retention of urine, unspecified; N32.81 Overactive bladder
CPT/HCPCS: 81000; 87081; 87088

== ENCOUNTER → 2020-12-02 | Outpatient (CLI) | payer MEDICARE ==
[~2020-12-02] MED LIST changes: -AMIO200T4 PO; +AMIO200T6 PO; +ASPI-808 PO; -CALC600T14 PO; +CLC600T PO; -LISI1TAB25 PO; +LISI1TAB46 PO; +MU-V1TAB28 PO
[2020-12-02 11:33] LABS: BASOPHILS # (AUTO) 0.1 10^3/uL (0.0-0.1); BASOPHILS % (AUTO) 1 % (0-10); EOSINOPHILS # (AUTO) 0.1 10^3/uL (0.0-0.3); EOSINOPHILS % (AUTO) 2 % (0-10); HEMATOCRIT 38 % (35-52); HEMOGLOBIN 11.9 g/dL (11.5-16.0); LYMPHOCYTES # (AUTO) 1.6 10^3/uL (1.0-4.0); LYMPHOCYTES % (AUTO) 27 % (12-44); MEAN CORPUSCULAR HEMOGLOBIN 30 pg (25-34); MEAN CORPUSCULAR HGB CONC 32 g/dL (32-36); MEAN CORPUSCULAR VOLUME 95 fL (80-99); MEAN PLATELET VOLUME 9.4 fL (9.0-12.2); MONOCYTES # (AUTO) 0.3 10^3/uL (0.0-1.0); MONOCYTES % (AUTO) 5 % (0-12); NEUTROPHILS # (AUTO) 3.8 10^3/uL (1.8-7.8); NEUTROPHILS % (AUTO) 64 % (42-75); PLATELET COUNT 255 10^3/uL (130-400); WHITE BLOOD COUNT 5.9 10^3/uL (4.3-11.0)
[2020-12-02 11:58] LABS: ALBUMIN 4.4 GM/DL (3.2-4.5); BILIRUBIN,TOTAL 0.6 MG/DL (0.1-1.0); CALCIUM 9.3 MG/DL (8.5-10.1); POTASSIUM 4.3 MMOL/L (3.6-5.0); TOTAL PROTEIN 7.5 GM/DL (6.4-8.2)
== END ==
LOC: LAB 11:04
PROVIDERS: ATTEND Surgery
DX: I87.331 Chronic venous hypertension (idiopathic) with ulcer and inflammation of right lower extremity (principal); L97.212 Non-pressure chronic ulcer of right calf with fat layer exposed; L03.115 Cellulitis of right lower limb
CPT/HCPCS: 36415; 80053; 85025

== ENCOUNTER → 2020-12-02 | Outpatient (CLI) | payer MEDICARE, OTHER | LOC: WOUNDCARE 08:51 | PROVIDERS: ATTEND Surgery | DX: I87.331 Chronic venous hypertension (idiopathic) with ulcer and inflammation of right lower extremity (principal); L97.212 Non-pressure chronic ulcer of right calf with fat layer exposed; L03.115 Cellulitis of right lower limb | CPT/HCPCS: 11042; G0463 ==

== ENCOUNTER → 2020-12-08 | Outpatient (CLI) | payer MEDICARE | LOC: WOUNDCARE 10:01 | PROVIDERS: ATTEND Surgery | DX: I87.331 Chronic venous hypertension (idiopathic) with ulcer and inflammation of right lower extremity (principal); I96 Gangrene, not elsewhere classified; N18.30 Chronic kidney disease, stage 3 unspecified; L97.212 Non-pressure chronic ulcer of right calf with fat layer exposed | CPT/HCPCS: 11042; G0463 ==

== ENCOUNTER → 2020-12-15 | Outpatient (CLI) | payer MEDICARE | LOC: WOUNDCARE 09:46 | PROVIDERS: ATTEND Surgery | DX: I87.331 Chronic venous hypertension (idiopathic) with ulcer and inflammation of right lower extremity (principal); I96 Gangrene, not elsewhere classified; N18.30 Chronic kidney disease, stage 3 unspecified; L97.212 Non-pressure chronic ulcer of right calf with fat layer exposed | CPT/HCPCS: 11042; A6253; G0463 ==

== ENCOUNTER → 2020-12-22 | Outpatient (CLI) | payer MEDICARE ==
[~2020-12-22] MED LIST changes: +CALC600T91 PO; -CLC600T PO
== END ==
LOC: WOUNDCARE 09:45
PROVIDERS: ATTEND Surgery
DX: I87.331 Chronic venous hypertension (idiopathic) with ulcer and inflammation of right lower extremity (principal); L97.211 Non-pressure chronic ulcer of right calf limited to breakdown of skin; N18.30 Chronic kidney disease, stage 3 unspecified; I96 Gangrene, not elsewhere classified
CPT/HCPCS: 29581; G0463

== ENCOUNTER → 2020-12-23 | Outpatient (CLI) | payer MEDICARE | LOC: WOUNDCARE 14:01 | PROVIDERS: ATTEND Surgery | DX: S81.801A Unspecified open wound, right lower leg, initial encounter (principal) | CPT/HCPCS: 29581; G0463 ==

== ENCOUNTER → 2020-12-29 | Outpatient (CLI) | payer MEDICARE | LOC: WOUNDCARE 09:53 | PROVIDERS: ATTEND Surgery | DX: I87.331 Chronic venous hypertension (idiopathic) with ulcer and inflammation of right lower extremity (principal); L97.211 Non-pressure chronic ulcer of right calf limited to breakdown of skin; N18.30 Chronic kidney disease, stage 3 unspecified | CPT/HCPCS: 99212 ==

== ENCOUNTER → 2021-09-27 | Outpatient (CLI) | payer MEDICARE ==
[~2021-09-27] MED LIST changes: -AMIO200T6 PO; +AMIO200T65 PO
--- NOTE | 2021-09-27 12:27 | Diagnostic Imaging Report ---
INDICATION: Acute pain. EXAMINATION: Right ankle 09/27/2021 FINDINGS: 3 views of the ankle. There is a varus deformity of the foot in relation to the tibia which could be positional. Correlate clinically. This causes widening along the lateral aspect of the ankle mortise. There are osseous fragments adjacent to the medial malleolus which and lateral malleolus well-corticated in nature and chronic in appearance. No acute fractures appreciated. Soft tissues appear unremarkable. IMPRESSION: 1. There is deformity of the foot which could be positional but clinical correlation is recommended. This causes apparent widening of the lateral ankle mortise. Otherwise, chronic findings as above. Dictated by: Dictated on workstation # [id number]
== END ==
LOC: RAD FS 11:03
PROVIDERS: ATTEND Nurse Practitioner Family
DX: M21.961 Unspecified acquired deformity of right lower leg (principal)
CPT/HCPCS: 73610

== ENCOUNTER → 2022-05-13 | Outpatient (CLI) | payer MEDICARE ==
--- NOTE | 2022-05-13 14:09 | Diagnostic Imaging Report ---
INDICATION: Abdominal pain. Diarrhea. COMPARISON: None FINDINGS: Single frontal radiographic view of the abdomen was obtained and demonstrates nondistended loops of small bowel. There is no large collection of free intraperitoneal air. No unexpected extraosseous calcifications or radiopaque foreign bodies are seen. Osseous structures show no acute abnormalities. Patient is status post previous right hip total replacement. IMPRESSION: 1. Nonobstructed small bowel gas pattern. Dictated by: Dictated on workstation # [id number]
== END ==
LOC: RAD FS 11:36
PROVIDERS: ATTEND Nurse Practitioner Family
DX: R30.0 Dysuria (principal); R10.84 Generalized abdominal pain; R19.7 Diarrhea, unspecified; R11.0 Nausea
CPT/HCPCS: 74018

== ENCOUNTER 2023-08-07 11:09 | Emergency (ER) | payer MEDICARE ==
[~2023-08-07] VITALS: Ht 162 cm; Wt 92.0 kg
[~2023-08-07 11:09] MED LIST changes: -ESTR0.5T; +ESTR0.5T2
--- NOTE | 2023-08-07 11:18 | ED Dyspnea ---
General Chief Complaint: Cardiac/General Problems Stated Complaint: A-FIB Source of Information: Patient, EMS Exam Limitations: No Limitations History of Present Illness Date Seen by Provider: Aug 07, 2023 Time Seen by Provider: 11:06 Initial Comments 78-year-old female presents from the [facility] for atrial fibrillation with rapid heart rate. She states she was being seen there for shortness of breath for 2 months. It is worse over the last couple of weeks. Initial report of EMS was [id number]. They gave her 20 mg of Cardizem and she has been in the 70s and 80s since that time. She is on Eliquis. No recent changes in her medications. She denies any chest pain. She has had a cough for the last 2 months that is nonproductive and her shortness of breath is significantly worse with exertion. She has not noticed any orthopnea but does believe she has had some increase in her chronic leg swelling. She tells me she had a heart cath in October which she believes was negative. All other systems reviewed and negative except documented per HPI. Voice recognition software was used to help create this chart Allergies and Home Medications Allergies Coded Allergies: sulfamethoxazole (Verified Allergy, Unknown, tongue swelling, 12/05/18) trimethoprim (Verified Allergy, Unknown, tongue swelling, 12/05/18) Patient Home Medication List Home Medication List Reviewed: Yes Amiodarone HCl (Amiodarone HCl) 200 Mg Tablet, 200 MG PO DAILY, (Reported) Entered as Reported by: VANESSA LOZOYA on 12/05/18 1345 Calcium Carbonate (Calcium) 600 Mg Tablet, 600 MG PO DAILY, (Reported) Entered as Reported by: VANESSA LOZOYA on 12/05/18 1345 Gabapentin (Gabapentin) 100 Mg Capsule, 100 MG PO TID, (Reported) Entered as Reported by: VANESSA LOZOYA on 12/05/18 1345 Lisinopril/Hydrochlorothiazide (Lisinopril-Hctz 20-12.5 mg Tab) 1 Each Tablet, 1 EACH PO DAILY, (Reported) Entered as Reported by: VANESSA LOZOYA on 12/05/18 1345 Multivit-Min/FA/Lycopene/Lut (Cent[place] Adults 50+ Tablet) 1 Each Tablet, 1 EACH PO DAILY, (Reported) Entered as Reported by: VANESSA LOZOYA on 04/09/20 1346 [place] 3 Polyunsat Fatty Acids (Fish Oil 1,000 mg Capsule) 1,000 Mg Cap, 1,000 MG PO DAILY, (Reported) Entered as Reported by: VANESSA LOZOYA on 12/05/18 1345 Review of Systems Review of Systems Constitutional: see HPI Past Gwhpfzp-Kufngw-Flsmsi Hx Patient Social History Tobacco Use?: No Use of E-Cig and/or Vaping dev: No Substance use?: No Alcohol Use?: No Pt feels they are or have been: No Immunizations Up To Date PED Vaccines UTD: No Seasonal Allergies Seasonal Allergies: No Past Medical History Surgery/Hospitalization HX: a fib, htn, anxiety,CKD,fibromyaglia Surgeries: Yes (bilat TKR, R hip replaced, R mastectomy, BILAT FOOT) Breast, Hysterectomy, Joint Replacement, Orthopedic Respiratory: No Currently Using CPAP: No Currently Using BIPAP: No Cardiac: Yes Atrial Fibrillation, Hypertension Neurological: Yes (restless legs) [employer] History: Hysterectomy Genitourinary: Yes (CYSTOCELE, oab, RETENTION) UTI-Chronic Gastrointestinal: No Musculoskeletal: Yes Arthritis, Fibromyalgia Endocrine: No HEENT: Yes (dentures) Cancer: Yes Breast What Type of Treatment Did You: Surgical Intervention Psychosocial: Yes Anxiety, Depression Integumentary: No Blood Disorders: No Physical Exam Vital Signs Vital Signs - First Documented 08/07/23 11:11 Temp 37.0 Pulse 85 Resp 20 Pulse Ox 99 O2 Delivery Room Air Capillary Refill : Less Than 3 Seconds Height, Weight, BMI Height: 5'7.00" Weight: 215lbs. 0.0oz. 97.769215of; 32.96 BMI Method: General Appearance: No Apparent Distress, WD/WN HEENT: Normal ENT Inspection, Pharynx Normal Neck: Normal Inspection, Non Tender, Supple Respiratory: Chest Non Tender, Lungs Clear, Normal Breath Sounds, No Accessory Muscle Use, No Respiratory Distress Cardiovascular: No Murmur, Normal Peripheral Pulses, Irregularly Irregular Gastrointestinal: Normal Bowel Sounds, No Organomegaly, Non Tender, Soft Extremity: Normal Capillary Refill, Pedal Edema (2+ pitting edema bilateral lower extremities. She does have compression stockings on) Neurologic/Psychiatric: Alert, Oriented x3 Skin: Normal Color, Warm/Dry Progress/Results/Core Measures Results/Orders Lab Results Laboratory Tests Test 08/07/23 11:18 08/07/23 11:20 Range/Units White Blood Count 6.0 4.3-11.0 10^3/uL Red Blood Count 3.87 3.80-5.11 10^6/uL Hemoglobin 11.7 11.5-16.0 g/dL Hematocrit 36 35-52 % Mean Corpuscular Volume 93 80-99 fL Mean Corpuscular Hemoglobin 30 25-34 pg Mean Corpuscular Hemoglobin Concent 33 32-36 g/dL Red Cell Distribution Width 14.4 10.0-14.5 % Platelet Count 203 130-400 10^3/uL Mean Platelet Volume 10.5 9.0-12.2 fL Immature Granulocyte % (Auto) 0 % Neutrophils (%) (Auto) 74 42-75 % Lymphocytes (%) (Auto) 19 12-44 % Monocytes (%) (Auto) 6 0-12 % Eosinophils (%) (Auto) 1 0-10 % Basophils (%) (Auto) 1 0-10 % Neutrophils # (Auto) 4.4 1.8-7.8 10^3/uL Lymphocytes # (Auto) 1.1 1.0-4.0 10^3/uL Monocytes # (Auto) 0.3 0.0-1.0 10^3/uL Eosinophils # (Auto) 0.1 0.0-0.3 10^3/uL Basophils # (Auto) 0.1 0.0-0.1 10^3/uL Immature Granulocyte # (Auto) 0.0 0.0-0.1 10^3/uL Sodium Level 137 135-145 MMOL/L Potassium Level 4.1 3.6-5.0 MMOL/L Chloride Level 103 98-107 MMOL/L Carbon Dioxide Level 22 21-32 MMOL/L Anion Gap 12 5-14 MMOL/L Blood Urea Nitrogen 15 7-18 MG/DL Creatinine 0.89 0.60-1.30 MG/DL Estimat Glomerular Filtration Rate 66 BUN/Creatinine Ratio 17 Glucose Level 105 70-105 MG/DL Calcium Level 9.2 8.5-10.1 MG/DL Corrected Calcium 9.0 8.5-10.1 MG/DL Total Bilirubin 0.8 0.1-1.0 MG/DL Aspartate Amino Transf (AST/SGOT) 53 H 5-34 U/L Alanine Aminotransferase (ALT/SGPT) 34 0-55 U/L Alkaline Phosphatase 178 H 40-136 U/L Troponin I < 0.30 <0.30 NG/ML Total Protein 7.3 6.4-8.2 GM/DL Albumin 4.3 3.2-4.5 GM/DL Influenza Type A (RT-PCR) Not Detected Not Detecte Influenza Type B (RT-PCR) Not Detected Not Detecte SARS-CoV-2 RNA (RT-PCR) Not Detected Not Detecte My Orders Orders - TERRENCE GAMBOA DO Cbc And Automated Diff (08/07/23 11:13) Comprehensive Metabolic Panel (08/07/23 11:13) Troponin I Fs (08/07/23 11:13) Chest 1 View Ap/Pa Only (08/07/23 11:13) Ekg Tracing (08/07/23 11:13) Ed Iv/Invasive Line Start (08/07/23 11:13) Covid 19 Inhouse Test (08/07/23 11:18) Influenza A And B By Pcr (08/07/23 11:18) Ct Chest W (08/07/23 11:48) Iohexol Injection (Omnipaque 350 Mg/Ml 1 (08/07/23 12:00) Received Contrast (Hold Metformin- Contr (08/07/23 12:00) Ns (Ivpb) 100 Ml (Sodium Chloride 0.9% 1 (08/07/23 12:00) Furosemide Tablet (Furosemide Tablet) (08/07/23 13:00) Medications Given in ED Current Medications Medications Dose Ordered Sig/Rubina Route Start Time Stop Time Status Last Admin Dose Admin Iohexol 100 ml ONCE ONCE IV 08/07/23 12:00 08/07/23 12:01 DC 08/07/23 12:12 80 ML Sodium Chloride 100 ml ONCE ONCE IV 08/07/23 12:00 08/07/23 12:01 DC 08/07/23 12:12 100 ML Vital Signs/I&O 08/07/23 11:11 Temp 37.0 Pulse 85 Resp 20 B/P (MAP) Pulse Ox 99 O2 Delivery Room Air Comment Atrial fibrillation with a rate of 83 bpm. Left axis deviation. Normal intervals also the VT interval. No ST or T wave abnormalities. No ectopy. No STEMI. Departure Communication (Admissions) Patient is hemodynamically stable. Initially heart rates in the 70s to 80s and maintained there during the duration of her work-up here today. She is mildly short of breath when she moves over to the [facility] however this resolved spontaneously and she does not have any recurrence. CT scan obtain after x-ray showed prominence in the hilar region on chest x-ray, possible nodularity. CT scan shows mild pulmonary edema but no mass, focal infiltrate. I believe she likely has a mild pulmonary edema causing her to be short of breath so we will go ahead and give her some p.o. Lasix here and advised to follow-up with her primary doctor to see if they want to continue this for several days. It is also possible that she is going in and out of A-fib with RVR causing her symptoms. She is on Eliquis so stroke with risk is low. She had a recent heart cath back in October which was reported to me as negative. I do not think this is likely related to ACS or coronary artery disease, congestive heart failure. She may have pulmonary hypertension as well however this would not be able to be identified here in an emergent setting. She is discharged in stable condition. Impression Primary Impression: Atrial fibrillation with RVR Additional Impressions: Pulmonary edema Qualified Codes: J81.0 - Acute pulmonary edema Dyspnea on exertion Disposition: HOME, SELF-CARE Condition: Stable Departure-Patient Inst. Referrals: [facility] [place] (PCP/Family) Primary Care Physician Patient Instructions: Shortness of Breath, Adult ED Add. Discharge Instructions: You have a small amount of fluid on your lungs. I have given you a water pill by mouth here in the emergency department which should increase your urination over the next couple of days and potentially help with your symptoms. I recommend you follow-up with your primary doctor for further evaluation and treatment recommendations and to see if they want you to be on a low-dose of diuretic for the next short time. The CT scan of your chest is otherwise normal. Your heart was beating fast when you got here. This improved with the medication that the paramedics gave you has been slower since that time. It is possible that your heart is racing during the times when you are not feeling short of breath. Again I recommend you follow-up with your primary doctor to see if they want to start you on something different for heart rate control. Return to the emergency department for any severe concerns. Follow with your primary doctor for any nonemergent needs. All discharge instructions reviewed with patient and/or family. Voiced understanding. TERRENCE GAMBOA DO Aug 07, 2023 11:18
[2023-08-07 11:25] LABS: BASOPHILS # (AUTO) 0.1 10^3/uL (0.0-0.1); BASOPHILS % (AUTO) 1 % (0-10); EOSINOPHILS # (AUTO) 0.1 10^3/uL (0.0-0.3); EOSINOPHILS % (AUTO) 1 % (0-10); HEMATOCRIT 36 % (35-52); HEMOGLOBIN 11.7 g/dL (11.5-16.0); LYMPHOCYTES # (AUTO) 1.1 10^3/uL (1.0-4.0); LYMPHOCYTES % (AUTO) 19 % (12-44); MEAN CORPUSCULAR HEMOGLOBIN 30 pg (25-34); MEAN CORPUSCULAR HGB CONC 33 g/dL (32-36); MEAN CORPUSCULAR VOLUME 93 fL (80-99); MEAN PLATELET VOLUME 10.5 fL (9.0-12.2); MONOCYTES # (AUTO) 0.3 10^3/uL (0.0-1.0); MONOCYTES % (AUTO) 6 % (0-12); NEUTROPHILS # (AUTO) 4.4 10^3/uL (1.8-7.8); NEUTROPHILS % (AUTO) 74 % (42-75); PLATELET COUNT 203 10^3/uL (130-400)
--- NOTE | 2023-08-07 11:43 | Diagnostic Imaging Report ---
INDICATION: Dyspnea. COMPARISON: None available. TECHNIQUE: Single frontal radiograph of the chest dated 08/07/2023. FINDINGS: Surgical clips are noted overlying the lateral right chest. The cardiac silhouette is mildly enlarged. No significant pulmonary vascular congestion. Nodular fullness is noted within the right hilar and right suprahilar location. Otherwise, the lungs appear clear. No significant pleural effusion. No pneumothorax. No acute osseous abnormality. IMPRESSION: Nodular fullness involving the right hilum and suprahilar region. Although this may simply relate to prominent pulmonary vasculature, adenopathy or additional pulmonary nodule is not excluded. A CT of the chest, preferably with contrast, would be recommended for further evaluation. Mild cardiomegaly without pleural effusion. Dictated by: Dictated on workstation # [id number]
[2023-08-07 11:50] LABS: ALANINE AMINOTRANSFERASE 34 U/L (0-55); ALBUMIN 4.3 GM/DL (3.2-4.5); ALKALINE PHOSPHATASE 178 U/L (40-136); BILIRUBIN,TOTAL 0.8 MG/DL (0.1-1.0); BUN/CREATININE RATIO 17; CALCIUM 9.2 MG/DL (8.5-10.1); CARBON DIOXIDE 22 MMOL/L (21-32); CHLORIDE 103 MMOL/L (98-107); CREATININE SERUM 0.89 MG/DL (0.60-1.30); GFR ESTIMATED 66; GLUCOSE 105 MG/DL (70-105); POTASSIUM 4.1 MMOL/L (3.6-5.0); SODIUM 137 MMOL/L (135-145); TOTAL PROTEIN 7.3 GM/DL (6.4-8.2)
[2023-08-07] MEDS ORDERED: HOLD METFORMIN - RECEIVED CONTRAST 20 ML VIAL IV SCH (12:00)
[2023-08-07] MEDS ORDERED: IOHEXOL 350 MG/ML 100 ML (OMNIPAQUE 350) VIAL IV ONE (12:00)
[2023-08-07] MEDS ORDERED: NS 100 ML (IVPB) BAG IV ONE (12:00)
--- NOTE | 2023-08-07 12:45 | Diagnostic Imaging Report ---
CT CHEST W TECHNIQUE: Multiple contiguous axial images were obtained through the chest with the use of intravenous contrast. All CT scans use one or more of the following dose optimizing techniques: automated exposure control, MA and/or KvP adjustment based on a patient size and exam type, or iterative reconstruction. INDICATION: Abnormal chest radiograph. Right hilar fullness. COMPARISON: Chest radiograph of earlier same day at 11:23 AM. FINDINGS: Lungs and airway: No abnormality in the trachea. Smooth septal thickening is present within the upper and lower lung zones that is most indicative of mild pulmonary edema. A bandlike area of subpleural consolidation is present in the medial aspect of the right lower lobe that is likely an area of atelectasis. No suspicious pulmonary nodules are present. Specifically, there is no right hilar mass. Pleura: Trace bilateral pleural effusions. No pneumothorax. Heart and mediastinum: Thyroid is normal. No supraclavicular or axillary lymphadenopathy. No mediastinal or hilar lymphadenopathy. Cardiomegaly is present with biatrial enlargement. 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 No dissection is present. Upper abdomen: No concerning abnormality in the upper abdomen. Musculoskeletal: Chronic superior endplate fracture of T12 has approximately 50% wedging anteriorly. No acute fracture in the thoracic spine. IMPRESSION: 1. No pulmonary mass or hilar lymphadenopathy. The abnormal appearance of right hilum is due to normal pulmonary vasculature. 2. Mild interstitial pulmonary edema. 3. Trace bilateral pleural effusions. Dictated by: Dictated on workstation # [id number]
[2023-08-07] MEDS ORDERED: FUROSEMIDE 20 MG TABLET PO ONE (13:00)
== END 2023-08-07 13:05 | disposition home or self-care (01) ==
LOC: EDUNIT# 11:09 → ER FS 11:09
DX: I48.91 Unspecified atrial fibrillation (principal); J81.1 Chronic pulmonary edema; Z79.01 Long term (current) use of anticoagulants
CPT/HCPCS: 36415; 71045; 71260; 80053; 84484; 85025; 87636; 93005; Q9967